=== PATIENT | female | born 1940 | race Caucasian/White ===

== ENCOUNTER 2020-12-31 08:47 | Inpatient (IN) | payer MEDICARE, SELFPAY ==
[2020-12-31] VITALS (32 sets, daily range): BP systolic 81–132; BP diastolic 51–97; PULSE 35–84; RESP 13–27; TEMP 36.1–37.1; O2SAT 87–99; BMI 41.2; BMI 41.0
--- NOTE | ~2020-12-31 | US_ITS ---
US renal BI DATE: 01/01/2021 10:25 INDICATION: Acute renal insufficiency TECHNIQUE: Real-time imaging of the kidneys and urinary bladder COMPARISON: May 03, 2006 complete abdominal ultrasound April 29, 2006 CT abdomen FINDINGS: Right kidney measures 9.6 cm length, left kidney 9.3 cm. There are multiple left renal cysts, measuring up to 2.2 cm. No evidence of hydronephrosis of either kidney. Urinary bladder is evacuated and not evaluated. IMPRESSION: No evidence of hydronephrosis of either kidney Left renal cysts Reviewed, dictated and finalized at [facility]. Reviewed, dictated and finalized at [facility].
--- NOTE | ~2020-12-31 | XR_ITS ---
EXAMINATION: XR chest 1V portable INDICATION: Shortness of breath TECHNIQUE: Portable AP chest at 0905 hours COMPARISON: 08/24/2011 FINDINGS: There are airspace opacities of the lung bases and right midlung zone. No pleural effusion or pneumothorax is identified. The cardiomediastinal silhouette is upper limits of normal for techniq ue. IMPRESSION: 1. Airspace opacities of the lung bases and right midlung zone, consistent with atelectasis versus pn eumonia. Reviewed, dictated and finalized at [facility]. IMPRESSION: 1. Airspace opacities of the lung bases and right midlung zone, consistent with atelectasis versus pneumonia.
--- NOTE | ~2020-12-31 | CT_ITS ---
EXAMINATION: CT brain wo con DATE: 12/31/2020 18:16 INDICATION: Fall out of bed. TECHNIQUE: Computed tomography (CT) of the head was performed without intravenous contrast. The mA wa s adjusted according to patient size. Iterative reconstruction technique was employed. Exam dose: 60 5.33 mGy-cm total exam DLP. COMPARISON: None FINDINGS: Bilateral carotid siphon internal carotid artery prominent calcifications. There is nonspecific diminished attenuation of the cerebral white matter, likely due to chronic small vessel ischemic changes. There is cerebral volume loss predominating in the frontal lobes. No intracranial mass lesion or hemorrhage or cerebrovascular accident is detected. No midline shift o r mass effect effect. No subdural or epidural hematoma. The mastoid air cells and included paranasal sinuses are normally developed and aerated. No fracture or bone destruction of the cranial vault. IMPRESSION: Cerebral atherosclerosis and chronic small vessel ischemic changes. No acute intracranial abnormality or skull fracture Reviewed, dictated and finalized at [facility]. Reviewed, dictated and finalized at location [facility]. IMPRESSION: Cerebral atherosclerosis and chronic small vessel ischemic changes . No acute intracranial abnormality or skull fracture
--- NOTE | 2020-12-31 08:54 | ECG_ITS ---
Measurements Intervals [place] Rate: 43 P: [place]: 0 QRS: 122 QRSD: 118 T: 120 QT: 454 QTc: 386 Interpretive Statements SINUS BRADYCARDIA WITH FIRST DEGREE AV BLOCK CHANGES TO SLOW JUNCTIONAL RHYTHM LIMB LEAD REVERSAL ATRIAL PREMATURE COMPLEX BORDERLINE T WAVE ABNORMALITY- ANTEROLATERAL LEADS BASELINE ARTIFACT- I, V1 ABNORMAL ECG Electronically Signed On 12-31-2020 10:56:06 CDT by Darrin Valadez D.O.
--- NOTE | 2020-12-31 09:03 | ED.ARRPALP ---
HPI - Arrhythmia/Palpitations General Chief Complaint: Arrhythmia/Palpitations Stated Complaint: nausea, pale, low hr Time Seen by Provider: 12/31/20 08:52 Source: patient, EMS and RN notes reviewed Mode of arrival: EMS Limitations: no limitations History of Present Illness HPI narrative: This is an 80 year old female with history of atrial fibrillation on coumadin who presents for evaluation of palpitations with dizziness, nausea and vomiting. She states last night she developed feeling heart racing so she assumed her atrial fibrillation was acting up . She had difficulty sleeping last night. She continued to have these episodes. She later developed vertigo with nausea, vomiting and shortness of breath when she would try to get up . EMS found patient with HR in 30-40s with first degree AV block. Patient was started on IV fluids in ambulance. Patient denies any symptoms at rest currently. She last took her medications this morning but she thinks she may have thrown them back up. Denies leg swelling, fever, chills, cough. Related Data Home Medications Medication Instructions Recorded Confirmed omeprazole magnesium 20 mg 20 mg PO DAILY 12/15/19 12/31/20 tablet,delayed release flecainide 100 mg PO DAILY 12/31/20 12/31/20 metoprolol succinate 100 mg PO Q12H 12/31/20 12/31/20 warfarin 4 mg PO DAILY 12/31/20 12/31/20 Allergies Allergy/AdvReac Type Severity Reaction Status Date / Time No Known Allergies Allergy Unknown Verified 12/31/20 09:26 Review of Systems Review of Systems: All systems reviewed & are unremarkable except as noted in HPI and below PMFSH Past Medical History Medical History (Updated 12/31/20 @ 18:41 by Alondra Hopkins MD) Atrial fibrillation and flutter Paroxysmal atrial fibrillation Primary hypertension Psoriasis Surgical History Surgical History H/O colonoscopy History of knee surgery [place] teeth removed Family History Family History Father Family history of cardiovascular disease Mother Family history of malignant neoplasm of breast in first degree relative Other Family history of coronary artery disease Social History Social History Social History: The patient lives home alone. She is . She has 2 children who are the power sports attorney for healthcare. The patient used to smoke many years ago. 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 Code status full code Smoking packs per day: 0.5 Smoking cigarettes per day: 10.0 Years smoked: 30 Smoking pack-years: 15.00 Smoking status: Former smoker Tobacco type: cigarettes Second hand tobacco smoke exposure: No Smoking end date: 03/11/99 Alcohol intake: never Alcohol use details: Social Substance use: never Substance use type: does not use Gender identity (if verbalized by the patient): Female Sexual Orientation (if Verbalized by the Patient): Straight or Heterosexual Spiritual care concerns: No Agree to blood products: Yes Exam Const: General: no acute distress and alert Orientation/consciousness: patient oriented x3 HENMT: Ears: external ears normal and TM's normal bilaterally Eyes: Pupils: Equal, round and reactive pupils present EOM: EOMs intact bilaterally Neck: Neck: normal visual inspection Chest: Chest palpation & inspection: normal inspection of the chest Resp: Effort & Inspection: normal respiratory effort and no retractions Auscultation: clear to auscultation bilaterally Cardio: Rate: bradycardic Rhythm: abnormal rhythm Heart sounds: no murmurs GI: GI Palp: Yes Soft to palpation, No Tenderness to palpation present (GI) and No Guarding due to palpation present (GI) Auscultation: normal bowel sounds Back/Spine/Pelvis: Back: no CVA tendern
[2020-12-31] MEDS: GLUCAGON FOR INJ 1 MG VIAL 5 MG IV PUSH (09:43)
[2020-12-31] MEDS: SODIUM CHLORIDE 0.9% IV 1,000 ML 999 ML IV CONT (09:43)
[2020-12-31] MEDS: ONDANSETRON INJ 4 MG/2 ML VIAL IV PUSH (09:51)
[2020-12-31 10:08] LABS: Basophils Percent Auto 0.2 % (0.2-1.2); Eosinophils Percent Auto 0.5 % (0-4.4); Hematocrit 39.6 % (37.0-47.0); Hemoglobin 12.7 g/dL (12.0-15.0); INR 3.9; Immature Granulocyte Absolute 0.03 K/mm3 (0.00-0.031); Immature Granulocyte Percent A 0.4 % (0-0.5); Lymphocytes Absolute Auto 1.08 K/mm3 (0.9-3.2); Lymphocytes Percent Auto 13.4 % (18.3-44.2); Mean Corpuscular HGB Conc 32.1 g/dl (32-36); Mean Corpuscular Hemoglobin 30.2 pg (26-34); Mean Corpuscular Volume 94.3 fl (80-100); Mean Platelet Volume 10.2 fl (7.4-10.4); Monocytes Absolute Auto 0.7 K/mm3 (0.1-0.6); Monocytes Percent Auto 8.5 % (2.6-8.5); Neutrophils Absolute Auto 6.2 K/mm3 (1.3-6.7); Platelet Count Result 267 k/mm3 (150-375); Prothrombin Time 36.9 Seconds (11.1-14.7); Red Cell Distribution Width 13.7 % (11.5-14.5); White Blood Count 8.1 K/mm3 (4.5-10.0)
[2020-12-31 10:09] LABS: Partial Thromboplastin Time 41.6 SECONDS (22.3-36.8)
[2020-12-31 10:25] LABS: Anion Gap 8 mmol/L (8-16); Blood Urea Nitrogen 38 mg/dL (7-17); Calcium 9.1 mg/dL (8.4-10.2); Carbon Dioxide 30 mmol/L (22-30); Chloride 101 mmol/L (98-107); Estimated CRCL calculation 25 ml/min; Estimated Glomerular Filt Rate 27; Glucose 121 mg/dL (65-110); Magnesium 1.7 mg/dL (1.6-2.3); Potassium 4.1 mmol/L (3.4-5.0); Sodium 139 mmol/L (137-145)
[2020-12-31 10:34] LABS: NT Pro B Type Natriuretic Pept 2690 pg/mL (5-100)
[2020-12-31 10:37] LABS: Troponin I < 0.012 ng/mL (0.000-0.034)
[2020-12-31] MEDS: ATROPINE SULFATE 1 MG/10 ML SYRINGE IV PUSH ×2 (10:48→16:25)
--- NOTE | 2020-12-31 13:31 | PM.IMHP ---
H&P: HPI History of Present Illness Date/Time: 12/31/20 13:31 this is a 80-year-old female patient who lives home by herself. The patient has a history of atrial fibrillation and atrial flutter. This is paroxysmal. The patient stated she can typically tell when she goes into a atrial fibrillation because she feels dizzy and has palpitations. The patient came to the emergency room today because she felt her heart racing last night and just assumed that she was in atrial fibrillation. The patient stated that she had not taken her Coumadin yesterday or today. The patient vomited today and stated that she had only taken 1 of her medications and was her anti rhythmic medication and she cannot recall the name of it. 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 Patient sees the [facility] at [facility]. I asked the patient how her heart rate felt this morning she said she was having difficulty finding her pulse. The patient had severe vertigo this morning. The patient was found to have a heart rate in the 30s when EMS picked her up from her home. She had oxygen applied at 2 L per nasal cannula and she had IV fluids in the ambulance. The patient was also given glucagon, aspirin, Zofran, atropine, and IV fluids were started in the emergency room. When I assessed the patient the nasal cannula was on but her oxygen flow meter was turned off. The patient was talking in full sentences and had no further symptoms. Cardiology has been consulted. The patient heart rate is 50-60 now. Patient is being admitted to observation status on the date of service of 01/01/2020 Chief Complaint: Palpitations with nausea vomiting and dizziness Review of Systems Review of Systems: All systems reviewed & are unremarkable except as noted in HPI and below Constitutional: Constitutional: Reports as per HPI and Reports no additional constitutional complaints Eyes: Eyes: Reports as per HPI and Reports no additional eye complaints ENT: Reports system reviewed and no additional complaints, except as documented and Reports Normal hearing present Cardiovascular: Cardiovascular: Reports no additional cardiovascular complaints Respiratory: Respiratory: Reports no additional respiratory complaints and Reports no additional respiratory complaints Gastrointestinal: Gastrointestinal: Reports as per HPI and Reports no additional gastrointestinal complaints Musculoskeletal: Musculoskeletal: Reports no additional musculoskeletal complaints Integumentary/Breasts: Skin/Breast: Reports system reviewed and no additional complaints, except as docu and Reports as per HPI Neurologic: Reports system reviewed and no additional complaints, except as documented, Reports as per HPI and Reports Normal hearing present Psychiatric: Psychiatric: Reports no additional psychiatric complaints and Reports as per HPI Endocrine: Endocrine: Reports no additional endocrine complaints Hematologic/Lymphatic: Hematologic/Lymphatic: Reports no additional hematologic/lymphatic complaints Allergic/Immunologic: Allergic/Immunologic: Reports no additional allergic/immunologic complaints [facility] Past Medical History Medical History (Updated 12/31/20 @ 13:47 by Viki Man NP) Atrial fibrillation and flutter Primary hypertension Psoriasis Surgical History Surgical History (Updated 12/31/20 @ 13:39 by Viki Man NP) H/O colonoscopy History of knee surgery [place] teeth removed Family History Family History Father Family history of cardiovascular disease Mother Family history of malignant neoplasm of breast in first degree relative Other Family history of coronary artery disease Social History Social History (Updated 12/31/20 @ 13:43 by Viki Man NP) Social History: The patient lives home alone. She is . She has 2 children who are the power auditor/quality for he
--- NOTE | 2020-12-31 14:11 | ADMGEN ---
This patient, Iqra Jade, was admitted to IMU Room 211-01. Patient/family oriented to hospital policies and general routines including ID bracelet, bed and alarms, visiting hours, pain management, procedures, bathroom and other care routines, personal items, smoking policy, room service/diet, and visiting hours. Information on how to activate the Rapid Response Team has been discussed. Patient/Family are encouraged to report perceived risks to care and to ask questions if they do not understand what they are told or what they should do.
[2020-12-31 15:33] LABS: Troponin I < 0.012 ng/mL (0.000-0.034)
--- NOTE | 2020-12-31 15:57 | PM.CNCAR ---
Assessment and Plan Assessment and plan (1) Dizziness: Code(s): R42 - Dizziness and giddiness Status: Acute Assessment and Plan: Presumably the primary issue is marked bradycardia. She does have some vomiting episodes with this also and she also describes her dizziness as vertigo but regardless, she is having bradycardia and intermittent junctional rhythm while on a combination of flecainide and metoprolol. Will start her on some low-dose dopamine 2.5 micrograms/kilogram per minute IV overnight. Pacer pads on. Will check EKG in the morning. 2D echocardiogram Doppler also be ordered (2) Bradycardia: Code(s): R00.1 - Bradycardia, unspecified Status: Acute Assessment and Plan: Bradycardia with intermittent junctional rhythm. Improving. Obviously will stop flecainide and metoprolol. (3) Paroxysmal atrial fibrillation: Code(s): I48.0 - Paroxysmal atrial fibrillation Status: Acute Assessment and Plan: Generally in sinus rhythm but already having bursts of atrial fibrillation. 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 Will hold warfarin today. Daily INRs History of Present Illness History of Present Illness Consult date/time: 12/31/20 15:57 Requesting physician: Alondra Hopkins MD Consult reason: Other (Bradycardia) Reason For Visit: bradycardia/dizziness Narrative: Reason for admission: Bradycardia and dizziness Requesting provider: Dr. Hopkins Date of service 12/31/2020 History: Patient is an 80-year-old female who has a history of atrial fibrillation. She follows with Dr. Parker as an outpatient. She was formally on sotalol and warfarin for anticoagulation. Recently due to worsening atrial fibrillation, she was switched from sotalol to a combination of flecainide and metoprolol. She came to the hospital today because of some severe dizziness and feeling like she was going to pass out. She also describes the episode as vertigo. She had another episode about a week or so ago in which she felt like severe dizziness followed by vomiting. Episode lasted about 30 minutes. Last night she felt nauseated. She did not sleep well and states that she had very little sleep. She woke up and she started to have another episode of severe dizziness as if she and the room were both spending as well as feeling like she was going to pass out. She shortly thereafter started to throw up. Because of the symptoms she decided to call 911. Her pulse was distant she thought. She did have a brief episode of some palpitations earlier today which felt like her atrial fibrillation. Whenever she came to the emergency department she has been having intermittent episodes of sinus bradycardia with intermittent junctional rhythm. She did have another episode of severe nausea and vomiting after receiving glucagon. At this point she is actually feeling better and denies any chest pain, shortness of breath, syncope, presyncope, paroxysmal nocturnal dyspnea, orthopnea, edema or palpitations. Review of Systems Review of Systems: All systems reviewed & are unremarkable except as noted in HPI and below Constitutional: Constitutional: Reports weakness Eyes: Eyes: Denies blurry vision ENT: Reports Normal hearing present Cardiovascular: Cardiovascular: Denies chest pain and Reports lightheadedness Respiratory: Respiratory: Reports dyspnea Gastrointestinal: Gastrointestinal: Denies abdominal pain Genitourinary: Genitourinary: Denies flank pain Musculoskeletal:
[2020-12-31] MEDS: DOPamine 400 MG/D5W 250 ML 400 MG/250 ML BAG 9.53 MG IV CONT (16:25)
--- NOTE | 2020-12-31 16:33 | ECG_ITS ---
Measurements Intervals [place] Rate: 74 P: [place]: 0 QRS: 120 QRSD: 129 T: 269 QT: 254 QTc: 282 Interpretive Statements ATRIAL FIBRILLATION WITH INTERMITTENT ECTOPIC ATRIAL COMPLEXES INTRAVENTRICULAR CONDUCTION DELAY BORDERLINE T WAVE ABNORMALITY- DIFFUSE LEADS ABNORMAL ECG Electronically Signed On 01-01-2021 9:50:53 CDT by Darrin Valadez D.O.
[2020-12-31 17:40] LABS: Troponin I < 0.012 ng/mL (0.000-0.034)
[2020-12-31] MEDS: SODIUM CHLORIDE 0.9% IV 1,000 ML 125 ML IV CONT (19:05)
[2021-01-01] VITALS (18 sets, daily range): BP systolic 106–144; BP diastolic 51–89; PULSE 45–110; RESP 15–24; TEMP 36.4–37.1; O2SAT 88–96
[2021-01-01] MEDS: SODIUM CHLORIDE 0.9% IV 1,000 ML 125 ML IV CONT (03:25)
[2021-01-01] MEDS: ONDANSETRON INJ 4 MG/2 ML VIAL IV PUSH (03:26)
[2021-01-01 04:47] LABS: Basophils Percent Auto 0.2 % (0.2-1.2); Eosinophils Percent Auto 0.1 % (0-4.4); Hematocrit 37.7 % (37.0-47.0); Hemoglobin 12.1 g/dL (12.0-15.0); Immature Granulocyte Absolute 0.02 K/mm3 (0.00-0.031); Immature Granulocyte Percent A 0.2 % (0-0.5); Lymphocytes Absolute Auto 0.92 K/mm3 (0.9-3.2); Lymphocytes Percent Auto 9.7 % (18.3-44.2); Mean Corpuscular HGB Conc 32.1 g/dl (32-36); Mean Corpuscular Hemoglobin 30.5 pg (26-34); Mean Platelet Volume 10.2 fl (7.4-10.4); Monocytes Absolute Auto 0.7 K/mm3 (0.1-0.6); Monocytes Percent Auto 7.6 % (2.6-8.5); Neutrophils Absolute Auto 7.8 K/mm3 (1.3-6.7); Neutrophils Percent Auto 82.2 % (45.5-73.1); Platelet Count Result 217 k/mm3 (150-375); Red Blood Count 3.97 M/mm3 (4.2-5.4); Red Cell Distribution Width 13.6 % (11.5-14.5); White Blood Count 9.5 K/mm3 (4.5-10.0)
[2021-01-01 04:59] LABS: Alanine Aminotransferase 28 U/L (4-35); Albumin Level 3.9 g/dL (3.5-5.1); Alkaline Phosphatase 98 U/L (38-126); Anion Gap 11 mmol/L (8-16); Aspartate Amino Transferase 41 U/L (14-36); Bilirubin,Total 0.9 mg/dL (0.2-1.3); Blood Urea Nitrogen 39 mg/dL (7-17); Calcium 9.1 mg/dL (8.4-10.2); Carbon Dioxide 27 mmol/L (22-30); Chloride 102 mmol/L (98-107); Estimated CRCL calculation 32 ml/min; Estimated Glomerular Filt Rate 36; Glucose 112 mg/dL (65-110); Magnesium 1.4 mg/dL (1.6-2.3); Potassium 3.4 mmol/L (3.4-5.0); Sodium 140 mmol/L (137-145)
[2021-01-01 05:03] LABS: INR 2.9; Prothrombin Time 29.3 Seconds (11.1-14.7)
[2021-01-01 06:50] LABS: Thyroid Stimulating Hormone Reflex 0.309 uIU/mL (0.465-4.68)
--- NOTE | 2021-01-01 08:11 | ECG_ITS ---
Measurements Intervals [place] Rate: 47 P: 103 [place]: 240 QRS: 146 QRSD: 117 T: 141 QT: 483 QTc: 429 Interpretive Statements SINUS BRADYCARDIA WITH FIRST DEGREE AV BLOCK INTRAVENTRICULAR CONDUCTION DELAY DELAYED PRECORDIAL R/S TRANSITION T WAVE ABNORMALITY IN HIGH LATERAL LEADS- CONSIDER ISCHEMIA ABNORMAL ECG Electronically Signed On 01-01-2021 9:51:41 CDT by Darrin Valadez D.O.
[2021-01-01] MEDS: POTASSIUM CHLORIDE 20 MEQ TABLET 40 MEQ PO (08:47)
[2021-01-01] MEDS: PANTOPRAZOLE 40 MG TABLET PO (08:48)
[2021-01-01] MEDS: MAGNESIUM SULF 2 GM/WATER 50ML 2 GM/50 ML BAG IVPB (08:48)
--- NOTE | 2021-01-01 08:48 | WPDCNINT ---
Assessment and Plan Assessment and plan (1) Bradycardia: Code(s): R00.1 - Bradycardia, unspecified Status: Acute Assessment and Plan: patient presented with sinus bradycardia with intermittent junctional rhythm and is on low-dose dopamine at this time she is asymptomatic this could be secondary to beta-luther overdose or inherent cardiac will continue to monitor and wean off dopamine today continue to hold beta-luther blood pressure is adequate at this time ECHO is ordered and pending (2) Supratherapeutic INR: Code(s): R79.1 - Abnormal coagulation profile Status: Acute Assessment and Plan: patient is on Coumadin which was helpful on admission. INR is 2.9 today I will resume Coumadin dose of 4 mg daily and daily INR monitoring (3) Paroxysmal atrial fibrillation: Code(s): I48.0 - Paroxysmal atrial fibrillation Status: Acute Assessment and Plan: currently in sinus Raúl (4) Primary hypertension: Code(s): I10 - Essential (primary) hypertension Status: Acute Assessment and Plan: p.r.n. hydralazine (5) GERD (gastroesophageal reflux disease): Qualifiers: Esophagitis presence: esophagitis presence not specified Qualified Code(s): K21.9 - Gastro-esophageal reflux disease without esophagitis Code(s): K21.9 - Gastro-esophageal reflux disease without esophagitis Status: Acute Assessment and Plan: Continue PPI (6) ASHA (acute kidney injury): Code(s): N17.9 - Acute kidney failure, unspecified Status: Acute Assessment and Plan: patient presented with creatinine 1.8 baseline creatinine is unknown. Patient was started on IV fluids and creatinine has improved 1.4 today continue IV fluids for another 24 hours check CK and renal ultrasound this could be secondary to hypo perfusion from bradycardia and patient was also on diuretics which is on hold at this time (7) Abnormal chest xray: Code(s): R93.89 - Abnormal findings on diagnostic imaging of other specified body structures Status: Acute Assessment and Plan: her chest x-ray shows opacities on right lung base and patient does have few crackles on exam but otherwise she is asymptomatic she denies any cough fever and has a normal WBC incentive spirometry monitor Additional Plan DVT prophylaxis - on warfarin Stress ulcer prophylaxis - on PPI Nutrition - diet Code Status - Full Code Total CC time 30 minutes 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 presented yesterday with chief complaint of dizziness and lightheadedness. Symptoms started the day prior in the evening. She also felt that she was going to pass out but never actually did. The dizziness and lightheadedness was mostly associated with exertion. Prior to that patient denies any fever chest pain shortness of breath cough dysuria hematuria. She states that she was feeling fine until the evening. Later she started having some nausea and had few episodes of vomiting but no blood associated with it. during the history ED at was suspected the patient was taking her Toprol-XL twice a day. EMS was found to be bradycardic with heart rate in 30s and patient was also given glucagon, aspirin, Zofran, atropine, and IV fluids on arrival to the emergency room. patient was evaluated by Cardiology and patient was in sinus bradycardia with intermittent junctional rhythm. Patient was later started on dopamine infusion and admitted to ICU for further evaluation management. This morning patient states she is feeling better and denies any complaints at this time. She states her dizziness and lightheadedness has resolved and she has not had any vomiting overnight. She is in sinus bradycardia with heart rate in 50s but adequate
--- NOTE | 2021-01-01 09:07 | PM.PNCARD ---
Progress Note: A&P Assessment and Plan (1) Dizziness: Code(s): R42 - Dizziness and giddiness Status: Acute Assessment and Plan: Presumably the primary issue is marked bradycardia. She does have some vomiting episodes with this also and she also describes her dizziness as vertigo but regardless, she is having bradycardia and intermittent junctional rhythm while on a combination of flecainide and metoprolol. Dopamine on hold. Continue to monitor rate/rhythm. No need for temporary pacemaker at this point. (2) Bradycardia: Code(s): R00.1 - Bradycardia, unspecified Status: Acute Assessment and Plan: Sinus bradycardia. Improving. Obviously will stop flecainide and metoprolol. (3) Paroxysmal atrial fibrillation: Code(s): I48.0 - Paroxysmal atrial fibrillation Status: Acute Assessment and Plan: Generally in sinus rhythm but already having bursts of atrial fibrillation. 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 Resume warfarin Renal function is better. But will reduce IV fluids down to 75 mL per hour as she is eating and drinking also renal function is improving. Electrolyte imbalance Jaciel was changes is also noted. She is will be transfused receiving magnesium and potassium Subjective Date/time seen: 01/01/21 09:07 Interval history: 80-year-old with presyncope and bradycardia. Hold Lasix Date of service 01/01/2021 she is doing okay. She is without complaint no chest pain dizziness or shortness of breath. Her rhythm is generally now sinus bradycardia. No significant junctional rhythm is seen Review of Systems Review of Systems: All systems reviewed & are unremarkable except as noted in HPI and below Constitutional: Constitutional: Denies excessive sweating, Denies headache(s) and Reports weakness Eyes: Eyes: Denies blurry vision ENT: Reports Normal hearing present, Denies headache(s) and Denies neck pain Cardiovascular: Cardiovascular: Denies chest pain, Reports lightheadedness and Reports dyspnea Respiratory: Respiratory: Reports dyspnea Gastrointestinal: Gastrointestinal: Denies abdominal pain Genitourinary: Genitourinary: Denies flank pain Musculoskeletal: Musculoskeletal: Denies back pain and Denies neck pain Integumentary/Breasts: Skin/Breast: Denies dry skin Neurologic: Reports Normal hearing present, Denies headache(s) and Reports weakness Psychiatric: Psychiatric: Denies anxiety Endocrine: Endocrine: Denies excessive sweating Hematologic/Lymphatic: Hematologic/Lymphatic: Denies easy bleeding Allergic/Immunologic: Allergic/Immunologic: Denies GI upset with certain foods Exam Narrative: Alert oriented. Appears to be in no acute distress. Appears stated age Const: General: comfortable and no acute distress HENMT: General nose exam: Normal nares present Eyes: Sclera: sclerae normal Neck: Neck: supple and no JVD Chest: Other: No reproducible chest wall pain to palpation Resp: Auscultation: clear to auscultation bilaterally Cardio: Rate: bradycardic Rhythm: regular rhythm GI: Inspection: normal to inspection Skin: General skin exam: normal color Neuro: Cranial nerves: Yes Normal hearing present Cognition (Neuro): normal cognition Speech: normal speech Extrem: General: normal to inspection and no edema Psych: Mental Status: mental status grossly normal Objective Data Vital Signs Vital Signs: Vital Signs - 24 hr 12/31/20 10:03 12/31/20 10:15 12/31/20 10:20 Temperature Pulse
[2021-01-01 09:58] LABS: Creatine Kinase 182 U/L (30-135)
[2021-01-01 10:31] LABS: Free T4 Free Thyroxine Reflex 2.03 ng/dL (0.78-2.19)
[2021-01-01] MEDS: SODIUM CHLORIDE 0.9% IV 1,000 ML 75 ML IV CONT (12:29)
[2021-01-01] MEDS: ACETAMINOPHEN 500 MG TABLET 1000 MG PO (16:10)
[2021-01-01] MEDS: WARFARIN (*PBKC) 4 MG TABLET PO (16:14)
--- NOTE | 2021-01-01 17:30 | PC.NURSE ---
patient went into Afib with heart rate in low 100s/1teens. Dr. Gr notified. Verbal order received to monitor patient heart rate and if sustained heart rate in 130s, give cardiology a call. Will continue to monitor patient according to ICU protocol.
[2021-01-02] VITALS (20 sets, daily range): BP systolic 94–142; BP diastolic 58–98; PULSE 83–120; RESP 16–21; TEMP 35.9–36.9; O2SAT 91–100
--- NOTE | 2021-01-02 | ECHO_ITS ---
Patient Info Name: Iqra Jade Age: 80 years : 1940 Gender: Female Ht: 62 in Wt: 224 lbs BSA: 2.16 m2 HR: 103 bpm BP: 116 / 74 mmHg Heart Rhythm: Atrial Fibrillation Exam Date: 01/02/2021 8:11 AM Exam Location: [facility] Patient Status: Inpatient Admit Date: 01/01/2021 Staff Ordering Physician: Guero Gr MD Java Enterprise Architect: Dalton Macario, PREETCS, RT Attending Provider: Kris Harvey MD Referring Physician: Maile BRYANT; Exam Type: CA echo doppler color flow Study Info Indications R00.1 - Bradycardia, unspecified Complete two-dimensional, color flow and Doppler transthoracic echocardiogram is performed. Strain analysis performed. Summary 1. Complete two-dimensional, color flow and Doppler transthoracic echocardiogram is performed. 2. Normal left ventricular size and systolic function. 3. Moderate left atrial enlargement. 4. Small amount of mitral regurgitation. 5. Sclerotic aortic valve which is not stenotic. 6. Atrial fibrillation. Left Ventricle Left ventricular chamber dimension is normal. Left ventricular systolic function is normal, estimated at 60-65%. The left ventricular diastolic function is normal. Right Ventricle Right ventricular chamber dimension is normal. Left Atria Left atrial chamber dimension is moderately enlarged. Right Atria Right atrial chamber dimension is normal. Aortic Valve The aortic valve is trileaflet. There is mild aortic valve sclerosis. Pulmonic Valve The pulmonic valve is not well visualized. There is mild pulmonic regurgitation. Mitral Valve The mitral valve has normal leaflets. There is mild mitral valve regurgitation. Tricuspid Valve The tricuspid valve leaflets are normal. There is mild tricuspid valve regurgitation. Pericardium/Pleural The pericardium appears normal. Aorta The aortic root size at the sinus of Valsalva is normal. Left Ventricular Outflow Tract Name Value Normal LVOT 2D LVOT Diameter 2.0 cm LVOT Doppler LVOT Peak Gradient 2 mmHg LVOT Mean Gradient 1 mmHg LVOT VTI 14 cm LVOT VTI/AV VTI Ratio 0.5 LVOT Stroke Volume 42 ml LVOT CO 4.1 l/min LVOT CI 1.9 l/min/m2 Mitral Valve Name Value Normal MV Doppler MV Decel [place] 508 cm/s2 MV PHT 53 ms MV Area (PHT) 4.2 cm2 4.0-5.0 MV Regurgitation Doppler MR Peak Gradient 91 mmHg MV Diastolic Function
[2021-01-02] MEDS: SODIUM CHLORIDE 0.9% IV 1,000 ML 75 ML IV CONT (01:54)
[2021-01-02 04:41] LABS: Hematocrit 34.3 % (37.0-47.0); Hemoglobin 11.2 g/dL (12.0-15.0); Mean Corpuscular HGB Conc 32.7 g/dl (32-36); Mean Corpuscular Hemoglobin 30.7 pg (26-34); Mean Platelet Volume 10.2 fl (7.4-10.4); Platelet Count Result 177 k/mm3 (150-375); Red Blood Count 3.65 M/mm3 (4.2-5.4); Red Cell Distribution Width 13.5 % (11.5-14.5); White Blood Count 6.5 K/mm3 (4.5-10.0)
[2021-01-02 04:54] LABS: INR 3.2; Prothrombin Time 31.5 Seconds (11.1-14.7)
[2021-01-02 05:14] LABS: Alanine Aminotransferase 24 U/L (4-35); Albumin Level 3.3 g/dL (3.5-5.1); Alkaline Phosphatase 86 U/L (38-126); Anion Gap 6 mmol/L (8-16); Aspartate Amino Transferase 38 U/L (14-36); Bilirubin,Total 0.9 mg/dL (0.2-1.3); Blood Urea Nitrogen 32 mg/dL (7-17); Calcium 8.8 mg/dL (8.4-10.2); Carbon Dioxide 28 mmol/L (22-30); Chloride 104 mmol/L (98-107); Estimated CRCL calculation 40 ml/min; Estimated Glomerular Filt Rate 48; Glucose 84 mg/dL (65-110); Magnesium 1.8 mg/dL (1.6-2.3); Potassium 3.6 mmol/L (3.4-5.0); Sodium 138 mmol/L (137-145)
[2021-01-02] MEDS: MAGNESIUM SULF 1 GM/D5W 100 ML 1 GM/100 ML BAG IVPB (08:28)
[2021-01-02] MEDS: PANTOPRAZOLE 40 MG TABLET PO (08:41)
[2021-01-02] MEDS: POTASSIUM CHLORIDE 20 MEQ TABLET 40 MEQ PO (08:41)
--- NOTE | 2021-01-02 08:50 | WPDINTPN ---
Progress Note: A&P Assessment and Plan (1) Bradycardia: Code(s): R00.1 - Bradycardia, unspecified Status: Acute Assessment and Plan: patient presented with sinus bradycardia with intermittent junctional rhythm and is on low-dose dopamine dopamine was discontinued yesterday and patient was monitored in the ICU. This morning heart rate is improved and is now tachycardic with rate in 100 this could be secondary to beta-luther overdose or inherent cardiac will start p.r.n. IV Lopressor continue to hold beta-luther until patient seen by Cardiology blood pressure is adequate at this time ECHO has been done and report is pending (2) Supratherapeutic INR: Code(s): R79.1 - Abnormal coagulation profile Status: Acute Assessment and Plan: resolved in therapeutic range continue Coumadin dose of 4 mg daily and daily INR monitoring (3) Paroxysmal atrial fibrillation: Code(s): I48.0 - Paroxysmal atrial fibrillation Status: Acute Assessment and Plan: see above (4) Primary hypertension: Code(s): I10 - Essential (primary) hypertension Status: Acute Assessment and Plan: p.r.n. hydralazine (5) GERD (gastroesophageal reflux disease): Qualifiers: Esophagitis presence: esophagitis presence not specified Qualified Code(s): K21.9 - Gastro-esophageal reflux disease without esophagitis Code(s): K21.9 - Gastro-esophageal reflux disease without esophagitis Status: Acute Assessment and Plan: Continue PPI (6) ASHA (acute kidney injury): Code(s): N17.9 - Acute kidney failure, unspecified Status: Acute Assessment and Plan: patient presented with creatinine 1.8 baseline creatinine is unknown. Patient was started on IV fluids and creatinine has improved 1.1 today normal CK and renal ultrasound does not show any hydronephrosis this could be secondary to hypo perfusion from bradycardia and patient was also on diuretics which is on hold at this time (7) Abnormal chest xray: Code(s): R93.89 - Abnormal findings on diagnostic imaging of other specified body structures Status: Acute Assessment and Plan: her chest x-ray shows opacities on right lung base and patient does have few crackles on exam but otherwise she is asymptomatic she denies any cough fever and has a normal WBC incentive spirometry monitor Additional Plan DVT prophylaxis - on warfarin Stress ulcer prophylaxis - on PPI Nutrition - diet Code Status - Full Code PT OT, up in chair, incentive spirometry transfer out of ICU today Subjective Date/time seen: 01/02/21 Patient denies any complaints this morning as states she feels better. Patient denies any chest pain shortness breath cough palpitations fever headache nausea vomiting diarrhea. Review of system was negative all systems. Her heart rate has improved it is in 100s in atrial fibrillation Review of Systems Review of Systems: All systems reviewed & are unremarkable except as noted in HPI and below ( HPI) Exam Narrative: General: Pt is alert awake and in NAD Lungs/Chest: Trachea central Clear BS B/L, few crackles on right base Cardiac: Irregular . Normal S1 S2. No murmurs Circulation: Pedal pulses are intact and symmetrical. Abdomen: Normal bowel sounds.. obese Soft. NT. ND. Extremities: No clubbing, cyanosis or edema. Warm : Cow[place] in place Neurologic: Follows commands. Moves all 4 extremities PERRL alert oriented x3 Skin: No Rash Objective Data Vital Signs Vital Signs: Vital Signs - 24 hr 01/01/21 10:00 01/01/21 10:32 01/01/21 12:00 Temperature 37.1 C Pulse Rate 48 L 50 L Respiratory Rate 23 H 20 Blood Pressure 106/58 L 109/51 L Pulse Oximetry 91 91 92 01/01/21 14:00 01/01/21 14:31 01/01/21 15:56 Temperature 36.7 C Pulse Rate 45 L Respiratory Rate 18 Blood Pressure 115/60 Pulse Oximetry 90 92 01/01/21 16:0
--- NOTE | 2021-01-02 09:35 | PM.PNCARD ---
Progress Note: A&P Additional Plan 80-year-old lady with: Long history of paroxysmal atrial fibrillation was failed with therapy with sotalol which previously had been effective for a number of years now has failed flecainide and metoprolol. Discussion of this morning of course centered around excepting chronic atrial fibrillation verses attempting to restore sinus rhythm with amiodarone. My recommendation and she is agreeable to initiate amiodarone treatment and assess her response to this now that the other agents have washed out for couple of days. For now we will keep her on warfarin although I did caution her about the interaction between amiodarone and warfarin as well. Len Parker MD [facility] Subjective Date/time seen: Date of service: 01/02/21 09:35 Interval history: Follow-up visit in this 80-year-old lady with: Symptomatic recurrent atrial fibrillation. She had been treated with sotalol in the past with good success but then became resistant to this with significant AF burden. Recently she was transitioned to the combination of flecainide and metoprolol. She entered the hospital with symptomatic bradycardia and was in sinus rhythm alternating with junctional rhythm. These medications were stopped and as expected she is now back in atrial fibrillation heart rate is ranging between 90 and 110. While at bed rest she is essentially asymptomatic. Discussed options with patient in detail in terms of excepting chronic atrial fibrillation or starting amiodarone at this time. Exam Const: General: comfortable and no acute distress Other: Over obese elderly lady pleasant comfortable cooperative no distress HENMT: Mouth: Yes moist mucous membranes Eyes: Sclera: sclerae normal Pupils: Equal, round and reactive pupils present Neck: Neck: supple and no JVD Resp: Effort & Inspection: normal respiratory effort Auscultation: clear to auscultation bilaterally Cardio: Rhythm: abnormal rhythm irregularly irregular GI: GI Palp: Yes Soft to palpation Auscultation: normal bowel sounds Skin: General skin exam: normal color Neuro: Cognition (Neuro): normal cognition Extrem: General: normal to inspection Objective Data Vital Signs Vital Signs: Vital Signs - 24 hr 01/01/21 10:00 01/01/21 10:32 01/01/21 12:00 Temperature 37.1 C Pulse Rate 48 L 50 L Respiratory Rate 23 H 20 Blood Pressure 106/58 L 109/51 L Pulse Oximetry 91 91 92 01/01/21 14:00 01/01/21 14:31 01/01/21 15:56 Temperature 36.7 C Pulse Rate 45 L Respiratory Rate 18 Blood Pressure 115/60 Pulse Oximetry 90 92 01/01/21 16:00 01/01/21 17:30 01/01/21 18:00 Temperature Pulse Rate 49 L 105 H 107 H Respiratory Rate 22 H 16 Blood Pressure 126/64 127/67 Pulse Oximetry 91 95 01/01/21 20:00 01/01/21 22:00 01/02/21 00:00 Temperature 37.0 C 36.4 C Pulse Rate 99 92 92 Respiratory Rate 15 18 17 Blood Pressure 132/73 135/89 119/84 Pulse Oximetry 92 90 96 01/02/21 02:00 01/02/21 04:00 01/02/21 06:00 Temperature 36.8 C Pulse Rate 94 96 95 Respiratory Rate 21 H 17 20 Blood Pressure 115/77 106/61 Pulse Oximetry 91 93 97 01/02/21 07:22 01/02/21 08:00 Temperature 36.8 C Pulse Rate 100 Respiratory Rate 16 Blood Pressure 116/74 Pulse Oximetry 98 98 Intake/Output Intake/Output: Intake & Output 12/30/20 12/31/20 01/01/21 01/02/21 23:59 23:59 23:59 23:59 Intake Total 1500 2820 1000 Output Total 1050 1400 Balance 1500 1770 -400 Meds/Results Medications: Active Medications Generic Name Dose Route Start Last Admin Trade Name Freq PRN Reason Stop Dose Admin Acetaminophen 1,000 mg 01/01/21 15:58 01/01/21 16:10 Acetaminophen 500 Mg Tablet PO 1,000 mg Q6H PRN Administration Mild Pain (1-3) or Fever Hydralazine HCl 20 mg 01/01/21 09:21 Hydralazine Hcl 20 Mg/Ml Vial IV PUSH Q4H PRN Blood Pressure - High Sodium Chloride 1,000 mls @ 75 mls/hr 12/31/20 12:40
[2021-01-02] MEDS: AMIODARONE 360 MG/D5W 200 ML 360 MG/200 ML BAG 33.33 MG IV CONT (10:06)
[2021-01-02] MEDS: AMIODARONE 360 MG/D5W 200 ML 360 MG/200 ML BAG 16.67 MG IV CONT (15:54)
[2021-01-02] MEDS: WARFARIN (*PBKC) 4 MG TABLET PO (16:46)
[2021-01-03] VITALS (16 sets, daily range): BP systolic 111–147; BP diastolic 56–94; PULSE 95–122; RESP 16–22; TEMP 36.1–37.1; O2SAT 94–100
[2021-01-03] MEDS: AMIODARONE 360 MG/D5W 200 ML 360 MG/200 ML BAG 16.67 MG IV CONT ×2 (03:07→15:05)
[2021-01-03 05:10] LABS: Hematocrit 35.2 % (37.0-47.0); Hemoglobin 11.6 g/dL (12.0-15.0); Mean Corpuscular Hemoglobin 30.7 pg (26-34); Mean Corpuscular Volume 93.1 fl (80-100); Mean Platelet Volume 10.2 fl (7.4-10.4); Platelet Count Result 212 k/mm3 (150-375); Red Blood Count 3.78 M/mm3 (4.2-5.4); Red Cell Distribution Width 13.2 % (11.5-14.5); White Blood Count 6.9 K/mm3 (4.5-10.0)
[2021-01-03 05:18] LABS: INR 3.3; Prothrombin Time 32.8 Seconds (11.1-14.7)
[2021-01-03 05:25] LABS: Alanine Aminotransferase 22 U/L (4-35); Albumin Level 3.2 g/dL (3.5-5.1); Alkaline Phosphatase 90 U/L (38-126); Anion Gap 4 mmol/L (8-16); Aspartate Amino Transferase 31 U/L (14-36); Bilirubin,Total 0.6 mg/dL (0.2-1.3); Blood Urea Nitrogen 16 mg/dL (7-17); Carbon Dioxide 30 mmol/L (22-30); Chloride 104 mmol/L (98-107); Estimated CRCL calculation 54 ml/min; Estimated Glomerular Filt Rate > 60; Glucose 98 mg/dL (65-110); Magnesium 1.6 mg/dL (1.6-2.3); Potassium 3.9 mmol/L (3.4-5.0); Sodium 138 mmol/L (137-145)
--- NOTE | 2021-01-03 08:05 | PM.IMPN ---
Progress Note: A&P Assessment and Plan (1) Bradycardia: Code(s): R00.1 - Bradycardia, unspecified Status: Acute (2) Supratherapeutic INR: Code(s): R79.1 - Abnormal coagulation profile Status: Acute (3) Paroxysmal atrial fibrillation: Code(s): I48.0 - Paroxysmal atrial fibrillation Status: Acute (4) Primary hypertension: Code(s): I10 - Essential (primary) hypertension Status: Acute (5) GERD (gastroesophageal reflux disease): Qualifiers: Esophagitis presence: esophagitis presence not specified Qualified Code(s): K21.9 - Gastro-esophageal reflux disease without esophagitis Code(s): K21.9 - Gastro-esophageal reflux disease without esophagitis Status: Acute (6) ASHA (acute kidney injury): Code(s): N17.9 - Acute kidney failure, unspecified Status: Acute (7) Abnormal chest xray: Code(s): R93.89 - Abnormal findings on diagnostic imaging of other specified body structures Status: Acute Additional Plan 80yo lady with afib/aflutter presenting with palpitations, found to be in junctional rhythm with bradycardia. Had been on flecainide and metoprolol at home. Pacer pads placed and started on Dopamine drip and admitted to ICU. Since transitioned to amio drip, with HR in 110s. Metoprolol PRN on as well. Echo showing preserved EF and normal ventricular size. Warfarin continued, with INR 3.3. Noted she is open for possibility of DOAC if insurance & cost permit. Cardiology on board and appreciate any recommendations. ASHA on admission, which has resolved. NPO at midnight, as noted cardiology considering cardioversion tomorrow morning. Time Spent With Patient Time with patient: less than 15 minutes Subjective Date/time seen: 01/03/21 08:05 no acute complaints resting comfortably in bed Review of Systems Review of Systems: All systems reviewed & are unremarkable except as noted in HPI and below Exam Const: General: no acute distress Neck: Neck: no JVD Resp: Auscultation: clear to auscultation bilaterally Cardio: Rate: regular rate Rhythm: regular rhythm GI: GI Palp: Yes Soft to palpation and No Tenderness to palpation present (GI) Objective Data Vital Signs Vital Signs: Vital Signs - 24 hr 01/02/21 10:00 01/02/21 10:06 01/02/21 11:47 Temperature Pulse Rate 117 H 105 H Respiratory Rate 20 Blood Pressure 98/58 L Pulse Oximetry 93 96 01/02/21 12:00 01/02/21 14:00 01/02/21 15:54 Temperature 98.4 F Pulse Rate 94 113 H 92 Respiratory Rate 18 Blood Pressure 94/61 L Pulse Oximetry 98 01/02/21 16:00 01/02/21 17:56 01/02/21 19:21 Temperature 98.5 F 96.9 F L Pulse Rate 90 109 H Respiratory Rate 17 20 Blood Pressure 117/67 142/98 H Pulse Oximetry 96 100 01/02/21 20:00 01/02/21 20:05 01/02/21 21:29 Temperature Pulse Rate 106 H Respiratory Rate Blood Pressure Pulse Oximetry 96 96 01/02/21 22:00 01/02/21 23:42 01/03/21 00:00 Temperature 96.6 F L Pulse Rate 100 111 H 106 H Respiratory Rate 20 Blood Pressure 128/68 Pulse Oximetry 100 100 01/03/21 02:00 01/03/21 03:07 01/03/21 03:51 Temperature 98.6 F Pulse Rate 95 118 H 116 H Respiratory Rate 20 Blood Pressure 133/84 Pulse Oximetry 97 01/03/21 04:00 01/03/21 06:00 Temperature Pulse Rate 114 H 99 Respiratory Rate Blood Pressure Pulse Oximetry 97 Intake/Output Intake/Output: Intake & Output 12/31/20 01/01/21 01/02/21 01/03/21 23:59 23:59 23:59 23:59 Intake Total 1500 2820 2720 200 Output Total 1050 2400 1500 Balance 1500 1770 320 -1300 Meds/Results Medications: Active Medications Generic Name Dose Route Start Last Admin Trade Name Freq PRN Reason Stop Dose Admin Acetaminophen 1,000 mg 01/01/21 15:58 01/01/21 16:10 Acetaminophen 500 Mg Tablet PO 1,000 mg Q6H PRN Administration Mild Pain (1-3) or Fever Hydralazine HCl 20 mg 01/01/21 09:21
[2021-01-03] MEDS: PANTOPRAZOLE 40 MG TABLET PO (09:46)
--- NOTE | 2021-01-03 11:20 | PM.PNCARD ---
Progress Note: A&P Assessment and Plan (1) Atrial fibrillation with RVR: Code(s): I48.91 - Unspecified atrial fibrillation Status: Acute Assessment and Plan: Patient currently in atrial fibrillation with RVR. She has been initiated on IV amiodarone. Patient was previously on sotalol and flecainide. Patient does not recall being cardioverted in the past. At this time, continue IV amiodarone and if patient remains in AFib with RVR, consider DC cardioversion prior to discharge. Need for REUBEN will depend on if patient has been adequately anticoagulated with INR in therapeutic range in last 4 weeks. Will keep NPO from midnight in case cardioversion is considered tomorrow. Spoke with patient about option of switching warfarin to one of the direct oral anticoagulants. She seemed to be agreeable with that option and would like to think about it, although she had some concerns about cost. (2) Chronic anticoagulation: Code(s): Z79.01 - shelter (current) use of anticoagulants Status: Acute Assessment and Plan: Currently on warfarin, current INR 3.3. Subjective Date/time seen: 01/03/21 11:20 Date of service 01/03/2021-patient reports modest improvement in her dizziness. Denies chest pain or shortness of breath at rest. On telemetry, she has been in atrial fibrillation with heart rate in 110s. Patient is currently on IV amiodarone. Exam Narrative: PHYSICAL EXAMINATION: GENERAL: Obese, Alert, oriented, no acute distress MENTAL STATUS: affect appropriate to mood EYES: Extraocular movements intact, no pallor EARS: External ears appear normal, hearing grossly normal NOSE: Normal and patent, no discharge MOUTH: Mucous membranes moist, tongue normal NECK: Supple, no JVD CHEST: Scattered crackles at base HEART: Tachycardia, irregularly irregular rhythm ABDOMEN: Soft, obese NEUROLOGICAL: Alert, oriented, normal speech, no gross motor deficits MUSCULOSKELETAL: No major deformity, no amputation EXTREMITIES: Trace pedal edema, no clubbing, no cyanosis SKIN: Ecchymosis in the arms PSYCHIATRIC: Normal mood, appropriate affect Objective Data Vital Signs Vital Signs: Vital Signs - 24 hr 01/02/21 11:47 01/02/21 12:00 01/02/21 14:00 Temperature 36.9 C Pulse Rate 94 113 H Respiratory Rate 18 Blood Pressure 94/61 L Pulse Oximetry 96 98 01/02/21 15:54 01/02/21 16:00 01/02/21 17:56 Temperature 36.9 C Pulse Rate 92 90 109 H Respiratory Rate 17 Blood Pressure 117/67 Pulse Oximetry 96 01/02/21 19:21 01/02/21 20:00 01/02/21 20:05 Temperature 36.1 C L Pulse Rate 106 H Respiratory Rate 20 Blood Pressure 142/98 H Pulse Oximetry 100 96 01/02/21 21:29 01/02/21 22:00 01/02/21 23:42 Temperature 35.9 C L Pulse Rate 100 111 H Respiratory Rate 20 Blood Pressure 128/68 Pulse Oximetry 96 100 01/03/21 00:00 01/03/21 02:00 01/03/21 03:07 Temperature Pulse Rate 106 H 95 118 H Respiratory Rate Blood Pressure Pulse Oximetry 100 01/03/21 03:51 01/03/21 04:00 01/03/21 06:00 Temperature 37.0 C Pulse Rate 116 H 114 H 99 Respiratory Rate 20 Blood Pressure 133/84 Pulse Oximetry 97 97 01/03/21 08:00 01/03/21 10:00 Temperature 36.6 C Pulse Rate 102 H 122 H Respiratory Rate 16 Blood Pressure 147/90 H Pulse Oximetry 94 Intake/Output Intake/Output: Intake & Output 12/31/20 01/01/21 01/02/21 01/03/21 23:59 23:59 23:59 23:59 Intake Total 1500 2820 2720 440 Output Total 1050 2400 1500 Balance 1500 1770 320 -1060 Meds/Results Medications: Active Medications Generic Name Dose Route Start Last Admin Trade Name Freq PRN Reason Stop Dose Admin Acetaminophen 1,000 mg 01/01/21 15:58 01/01/21 16:10 Acetaminophen 500 Mg Tablet PO 1,000 mg Q6H PRN Administration Mild Pain (1-3) or Fever Hydralazine HCl 20 mg 01/01/21 09:21 Hydralazine Hcl 20 Mg/Ml Vial IV PUSH Q4H PRN Blood
[2021-01-03] MEDS: WARFARIN (*PBKC) 4 MG TABLET PO (17:47)
[2021-01-03 18:23] LABS: SARS-CoV-2 RNA PCR Negative
[2021-01-04] VITALS (19 sets, daily range): BP systolic 118–151; BP diastolic 77–99; PULSE 101–127; RESP 18–20; TEMP 36–37.6; O2SAT 92–100
[2021-01-04] MEDS: AMIODARONE 360 MG/D5W 200 ML 360 MG/200 ML BAG 16.67 MG IV CONT (03:30)
[2021-01-04 05:07] LABS: Basophils Percent Auto 0.1 % (0.2-1.2); Eosinophils Absolute Auto 0.2 K/mm3 (0-0.3); Eosinophils Percent Auto 2.2 % (0-4.4); Hematocrit 36.1 % (37.0-47.0); Hemoglobin 11.8 g/dL (12.0-15.0); Immature Granulocyte Absolute 0.03 K/mm3 (0.00-0.031); Immature Granulocyte Percent A 0.4 % (0-0.5); Lymphocytes Absolute Auto 0.91 K/mm3 (0.9-3.2); Lymphocytes Percent Auto 13.5 % (18.3-44.2); Mean Corpuscular HGB Conc 32.7 g/dl (32-36); Mean Corpuscular Volume 91.9 fl (80-100); Mean Platelet Volume 9.7 fl (7.4-10.4); Monocytes Absolute Auto 0.7 K/mm3 (0.1-0.6); Monocytes Percent Auto 10.1 % (2.6-8.5); Neutrophils Absolute Auto 4.9 K/mm3 (1.3-6.7); Neutrophils Percent Auto 73.7 % (45.5-73.1); Platelet Count Result 211 k/mm3 (150-375); Red Blood Count 3.93 M/mm3 (4.2-5.4); Red Cell Distribution Width 13.2 % (11.5-14.5); White Blood Count 6.7 K/mm3 (4.5-10.0)
[2021-01-04 05:16] LABS: Prothrombin Time 29.9 Seconds (11.1-14.7)
[2021-01-04 05:18] LABS: Alanine Aminotransferase 19 U/L (4-35); Alkaline Phosphatase 80 U/L (38-126); Anion Gap 4 mmol/L (8-16); Aspartate Amino Transferase 28 U/L (14-36); Bilirubin,Total 0.7 mg/dL (0.2-1.3); Blood Urea Nitrogen 13 mg/dL (7-17); Carbon Dioxide 33 mmol/L (22-30); Chloride 101 mmol/L (98-107); Estimated CRCL calculation 55 ml/min; Estimated Glomerular Filt Rate > 60; Glucose 104 mg/dL (65-110); Magnesium 1.3 mg/dL (1.6-2.3); Phosphorus 3.2 mg/dL (2.5-4.5); Potassium 3.9 mmol/L (3.4-5.0); Sodium 138 mmol/L (137-145)
[2021-01-04 06:23] LABS: Triiodothyronine T3 Free 2.4 pg/mL (2.3-4.2)
--- NOTE | 2021-01-04 08:59 | PM.IMPN ---
Progress Note: A&P Assessment and Plan (1) Bradycardia: Code(s): R00.1 - Bradycardia, unspecified Status: Acute (2) Supratherapeutic INR: Code(s): R79.1 - Abnormal coagulation profile Status: Acute Assessment and Plan: resolved in therapeutic range continue Coumadin and daily INR monitoring (3) Paroxysmal atrial fibrillation: Code(s): I48.0 - Paroxysmal atrial fibrillation Status: Acute Assessment and Plan: see above (4) Primary hypertension: Code(s): I10 - Essential (primary) hypertension Status: Acute Assessment and Plan: p.r.n. hydralazine (5) GERD (gastroesophageal reflux disease): Qualifiers: Esophagitis presence: esophagitis presence not specified Qualified Code(s): K21.9 - Gastro-esophageal reflux disease without esophagitis Code(s): K21.9 - Gastro-esophageal reflux disease without esophagitis Status: Acute Assessment and Plan: Continue PPI (6) ASHA (acute kidney injury): Code(s): N17.9 - Acute kidney failure, unspecified Status: Acute (7) Abnormal chest xray: Code(s): R93.89 - Abnormal findings on diagnostic imaging of other specified body structures Status: Acute Assessment and Plan: her chest x-ray shows opacities on right lung base and patient does have few crackles on exam but otherwise she is asymptomatic she denies any cough fever and has a normal WBC incentive spirometry monitor Additional Plan Understand cardiology considering cardioversion to be done today possibly. Resume diet as practical. In the mean time, continue amiodarone drip and coumadin, inr is therapuetic at 3. Time Spent With Patient Time with patient: less than 15 minutes Subjective Date/time seen: 01/04/21 08:59 resting comfdortably no acute complaints Review of Systems Review of Systems: All systems reviewed & are unremarkable except as noted in HPI and below Exam Const: General: no acute distress Neck: Neck: no JVD Resp: Effort & Inspection: normal respiratory effort Auscultation: clear to auscultation bilaterally Cardio: Rate: regular rate Rhythm: regular rhythm GI: Inspection: non-distended Objective Data Vital Signs Vital Signs: Vital Signs - 24 hr 01/03/21 10:00 01/03/21 12:00 01/03/21 14:00 Temperature 98.7 F Pulse Rate 122 H 107 H 115 H Respiratory Rate 16 Blood Pressure 111/94 H Pulse Oximetry 95 01/03/21 16:00 01/03/21 18:00 01/03/21 18:56 Temperature 98.7 F 98.7 F Pulse Rate 109 H 106 H 115 H Respiratory Rate 22 H 20 Blood Pressure 122/66 117/56 L Pulse Oximetry 97 97 01/03/21 20:00 01/03/21 22:00 01/03/21 23:27 Temperature 96.9 F L Pulse Rate 118 H 102 H 118 H Respiratory Rate 20 18 Blood Pressure 133/89 Pulse Oximetry 97 94 01/04/21 00:00 01/04/21 02:00 01/04/21 03:30 Temperature Pulse Rate 126 H 124 H 126 H Respiratory Rate 18 Blood Pressure Pulse Oximetry 94 01/04/21 04:00 01/04/21 06:00 01/04/21 08:02 Temperature 96.8 F L 98.0 F Pulse Rate 106 H 108 H 109 H Respiratory Rate 20 18 Blood Pressure 141/99 H 142/81 H Pulse Oximetry 100 96 Intake/Output Intake/Output: Intake & Output 01/01/21 01/02/21 01/03/21 01/04/21 23:59 23:59 23:59 23:59 Intake Total 2820 2720 1620 200 Output Total 1050 2400 2250 1000 Balance 1773 362 -979 -982 Meds/Results Medications: Active Medications Generic Name Dose Route Start Last Admin Trade Name Freq PRN Reason Stop Dose Admin Acetaminophen 1,000 mg 01/01/21 15:58 01/01/21 16:10 Acetaminophen 500 Mg Tablet PO 1,000 mg Q6H PRN Administration Mild Pain (1-3) or Fever Hydralazine HCl 20 mg 01/01/21 09:21 Hydralazine Hcl 20 Mg/Ml Vial IV PUSH Q4H PRN Blood Pressure - High Amiodarone HCl/Dextrose 360 mg in 200 mls @ 16.667 mls/hr 01/02/21 16:00 01/04/21 03:30 Nexterone 360 Mg/D5w 200 Ml IV CONT 0.5 mg
--- NOTE | 2021-01-04 09:57 | PM.PNCARD ---
Progress Note: A&P Additional Plan Stop amiodarone infusion Start amiodarone at 400 mg daily at this time. Consider discharge early this afternoon as long as her heart rate is reasonable and she is either asymptomatic or minimally symptomatic Len Parker MD [facility] Subjective Date/time seen: Date of service: 01/04/21 09:57 Interval history: Follow-up visit in this 80-year-old lady with: Symptomatic recurrent atrial fibrillation. She had been treated with sotalol in the past with good success but then became resistant to this with significant AF burden. Recently she was transitioned to the combination of flecainide and metoprolol. She entered the hospital with symptomatic bradycardia and was in sinus rhythm alternating with junctional rhythm. These medications were stopped and as expected she is now back in atrial fibrillation heart rate is ranging between 90 and 110. While at bed rest she is essentially asymptomatic. Discussed options with patient in detail in terms of excepting chronic atrial fibrillation or starting amiodarone at this time. Date of service 01/04/2021: Patient is asymptomatic still receiving intravenous amiodarone now for the last couple of days she is well rate controlled but persisting in atrial fib. Long discussion with the patient again about management strategy. I would like to transition her to oral amiodarone 400 mg daily at this time and consider discharge a little later in the day today if she remains well rate controlled. I will then see her in the office in about 1 month and if she is persisting in AFib attempt another cardioversion. Yesterday 5 partner discussed cardioverting her today which I would prefer not to do given the long half-life of amiodarone and the better chance of cardioversion succeed give her a longer oral loading dose. Exam Narrative: PHYSICAL EXAMINATION: GENERAL: Obese, Alert, oriented, no acute distress MENTAL STATUS: affect appropriate to mood EYES: Extraocular movements intact, no pallor EARS: External ears appear normal, hearing grossly normal NOSE: Normal and patent, no discharge MOUTH: Mucous membranes moist, tongue normal NECK: Supple, no JVD CHEST: Scattered crackles at base HEART: Tachycardia, irregularly irregular rhythm ABDOMEN: Soft, obese NEUROLOGICAL: Alert, oriented, normal speech, no gross motor deficits MUSCULOSKELETAL: No major deformity, no amputation EXTREMITIES: Trace pedal edema, no clubbing, no cyanosis SKIN: Ecchymosis in the arms PSYCHIATRIC: Normal mood, appropriate affect Const: General: comfortable and no acute distress Other: Over obese elderly lady pleasant comfortable cooperative no distress HENMT: General nose exam: Normal nares present Mouth: Yes moist mucous membranes Eyes: Sclera: sclerae normal Pupils: Equal, round and reactive pupils present Neck: Neck: supple and no JVD Chest: Other: No reproducible chest wall pain to palpation Resp: Effort & Inspection: normal respiratory effort Auscultation: clear to auscultation bilaterally Cardio: Rate: bradycardic Rhythm: regular rhythm and abnormal rhythm irregularly irregular GI: Inspection: normal to inspection Auscultation: normal bowel sounds Skin: General skin exam: normal color Neuro: Cranial nerves: Yes Equal, round and reactive pupils present and Yes Normal hearing present Cognition (Neuro): normal cognition Speech: normal speech Extrem: General: normal to inspection and no edema Psych: Mental Status: mental status grossly normal Objective Data Vital Signs Vital Signs: Vital Signs - 24 hr 01/03/21 10:00 01/03/21 12:00 01/03/21 14:00 Temperature 37.1 C Pulse Rate 122 H 107 H 115 H Respiratory Rate 16 Blood Pressure 111/94 H Pulse Oximetry 95 01/03/21 16:00 01/03/21 18:00 01/03/21 18:56 Temperature 37.1 C 37.1 C Pulse Rate 109 H 106 H 115 H Respiratory Rate 22 H 20 Blood Pressure 122/66 117/56 L Pulse Oximetry 97 97
[2021-01-04] MEDS: AMIODARONE HCL 200 MG TABLET 400 MG PO (10:25)
[2021-01-04] MEDS: PANTOPRAZOLE 40 MG TABLET PO (11:48)
--- NOTE | 2021-01-04 11:57 | PCPTNOTE ---
Attempted to see patient for PT, however when patient was performing bed mobility and bed transfer patient's heart rate increased to 150s. RN came into room and reported patient needed to lay back down and hold on therapy at this time.
--- NOTE | 2021-01-04 13:01 | PCOTNOTE ---
Per RN , do not see due to having increased HR, unable at this time to tolerate.
[2021-01-04] MEDS: TOLNAFTATE 1% POWDER 45 GM BTL 1 APPLIC TOPICAL ×2 (18:11→21:26)
[2021-01-04] MEDS: WARFARIN (*PBKC) 4 MG TABLET PO (18:11)
--- NOTE | 2021-01-04 18:12 | PC.NURSE ---
Verified with Pharmacy INR of 3.0 and ok to give warfarin
[2021-01-05] VITALS (20 sets, daily range): BP systolic 130–147; BP diastolic 69–106; PULSE 72–157; RESP 16–24; TEMP 36–37.9; O2SAT 92–99
[2021-01-05 05:43] LABS: Basophils Percent Auto 0.1 % (0.2-1.2); Eosinophils Absolute Auto 0.1 K/mm3 (0-0.3); Eosinophils Percent Auto 1.3 % (0-4.4); Hemoglobin 12.3 g/dL (12.0-15.0); Immature Granulocyte Absolute 0.02 K/mm3 (0.00-0.031); Immature Granulocyte Percent A 0.3 % (0-0.5); Lymphocytes Percent Auto 12.5 % (18.3-44.2); Mean Corpuscular HGB Conc 33.2 g/dl (32-36); Mean Corpuscular Hemoglobin 30.1 pg (26-34); Mean Corpuscular Volume 90.5 fl (80-100); Mean Platelet Volume 10.3 fl (7.4-10.4); Monocytes Absolute Auto 0.9 K/mm3 (0.1-0.6); Monocytes Percent Auto 11.1 % (2.6-8.5); Neutrophils Percent Auto 74.7 % (45.5-73.1); Platelet Count Result 238 k/mm3 (150-375); Red Blood Count 4.09 M/mm3 (4.2-5.4); Red Cell Distribution Width 13.2 % (11.5-14.5)
[2021-01-05 05:57] LABS: Prothrombin Time 30.5 Seconds (11.1-14.7)
[2021-01-05 05:59] LABS: Alanine Aminotransferase 17 U/L (4-35); Albumin Level 3.1 g/dL (3.5-5.1); Alkaline Phosphatase 86 U/L (38-126); Anion Gap 6 mmol/L (8-16); Aspartate Amino Transferase 26 U/L (14-36); Bilirubin,Total 1.1 mg/dL (0.2-1.3); Blood Urea Nitrogen 12 mg/dL (7-17); Carbon Dioxide 33 mmol/L (22-30); Chloride 96 mmol/L (98-107); Estimated CRCL calculation 54 ml/min; Estimated Glomerular Filt Rate > 60; Glucose 104 mg/dL (65-110); Magnesium 1.2 mg/dL (1.6-2.3); Phosphorus 3.1 mg/dL (2.5-4.5); Potassium 3.7 mmol/L (3.4-5.0); Sodium 135 mmol/L (137-145)
--- NOTE | 2021-01-05 08:02 | PM.DS ---
DS: Admitting Diagnosis Discharge Date January 05 Admitting Diagnosis Dizziness and palpitations DS: Discharge Diagnosis Discharge Diagnosis (1) Atrial fibrillation with RVR: Code(s): I48.91 - Unspecified atrial fibrillation Status: Acute DS: Summary Hospital Course Reason for hospitalization: Dizziness and palpitations Hospital Course: Patient is needing 1-year-old female who lives at home, presenting dizziness and palpitations related to her atrial fibrillation and atrial flutter. She is on metoprolol and flecainide at home, with which she is adherent, however has frequent episodes like this where heart flutters and she has palpitations and feels dizzy. Her heart rate is difficult to control, because she has burst of AFib with RVR, but also intermittent bradycardia relating to an intermittent junctional rhythm. She was seen by Cardiology, initially on a dopamine drip, converted to an amiodarone drip, which was then converted to p.o. amiodarone. Patient was set for discharge, however immediately prior, started feeling palpitations again heart rate was elevated to the 130s or 40s. Discussed case with Cardiology advised the a for cardioversion, so she was cardioversion performed inpatient early afternoon on January 06 2021, and since then has been in sinus rhythm. Cardiology comfortable with discharge today on p.o. amiodarone. Plan for discharge in a few hours. Anticoagulation also discussed, as Coumadin is dosed must be ingested in the setting of amiodarone given effect on liver cytochrome enzymes, however patient does not feel that she can manage the after insurance cost of the DOAC, and so will continue with warfarin. Discussed that this will likely mean dose changing in the future and will need close follow with [facility] primary care who manages INR and warfarin dosing. Patient understands. Instructed to return to emergency room, or call 911 immediately if symptoms return or worsen. Status at Discharge Functional status at discharge: uses cane/walker Time Spent with Patient Time attestation: Total time spent providing and/or coordinating discharge services: Time spent: Less than 30 minutes Exam Const: General: no acute distress Neck: Neck: no JVD Resp: Effort & Inspection: normal respiratory effort Auscultation: clear to auscultation bilaterally Cardio: Rate: regular rate Rhythm: regular rhythm GI: GI Palp: Yes Soft to palpation and No Tenderness to palpation present (GI) DS: Data Data Completed and Pending Labs on day of discharge: Labs from last 24 hours 01/05/21 01/05/21 01/05/21 05:02 05:02 05:02 WBC 8.0 RBC 4.09 L Hgb 12.3 Hct 37.0 MCV 90.5 MCH 30.1 MCHC 33.2 RDW 13.2 Plt Count 238 MPV 10.3 Immature Gran % (Auto) 0.3 Neut % (Auto) 74.7 H Lymph % (Auto) 12.5 L [place] % (Auto) 11.1 H Eos % (Auto) 1.3 Baso % (Auto) 0.1 L Lymph # (Auto) 1.00 [place] # (Auto) 0.9 H Eos # (Auto) 0.1 Baso # (Auto) 0.0 Abs Immat Gran (auto) 0.02 Absolute Neuts (auto) 6.0 Absolute Nucleated RBC 0.0 Nucleated RBC % 0.0 PT 30.5 H INR 3.0 Sodium 135 L Potassium 3.7 Chloride 96 L Carbon Dioxide 33 H Anion Gap 6 L BUN 12 Creatinine 0.80 Estim Creat Clear Calc 54 Estimated GFR > 60 Glucose 104 Calcium 9.0 Phosphorus 3.1 Magnesium 1.2 L Total Bilirubin 1.1 AST 26 ALT 17 Alkaline Phosphatase 86 Total Protein 6.0 L Albumin 3.1 L Discharge Plan Discharge Attending physician on discharge: Susie De Paz Consulting providers: Guero Gr Adarsh Discharging Clinician: Susie De Paz Patient Disposition: Home, Self-Care Activity: no shower, no straining and no driving Diet: as tolerated, heart healthy, low cholesterol and low fat Discharge Instructions:
[2021-01-05] MEDS: AMIODARONE HCL 200 MG TABLET 400 MG PO (08:32)
[2021-01-05] MEDS: TOLNAFTATE 1% POWDER 45 GM BTL 1 APPLIC TOPICAL ×2 (08:32→20:19)
[2021-01-05] MEDS: PANTOPRAZOLE 40 MG TABLET PO (08:32)
--- NOTE | 2021-01-05 10:17 | PM.IMPN ---
Progress Note: A&P Assessment and Plan (1) Atrial fibrillation with RVR: Code(s): I48.91 - Unspecified atrial fibrillation Status: Acute (2) Bradycardia: Code(s): R00.1 - Bradycardia, unspecified Status: Acute (3) Atrial fibrillation and flutter: Code(s): I48.91 - Unspecified atrial fibrillation; I48.92 - Unspecified atrial flutter Status: Acute (4) Primary hypertension: Code(s): I10 - Essential (primary) hypertension Status: Acute (5) Prediabetes: Code(s): R73.03 - Prediabetes Status: Acute (6) Obesity, morbid, BMI 40.0-49.9: Code(s): E66.01 - Morbid (severe) obesity due to excess calories Status: Acute (7) Chronic low back pain with left-sided sciatica: Qualifiers: Back pain laterality: left Qualified Code(s): M54.42 - Lumbago with sciatica, left side; G89.29 - Other chronic pain Code(s): M54.42 - Lumbago with sciatica, left side; G89.29 - Other chronic pain Status: Acute (8) GERD (gastroesophageal reflux disease): Qualifiers: Esophagitis presence: esophagitis presence not specified Qualified Code(s): K21.9 - Gastro-esophageal reflux disease without esophagitis Code(s): K21.9 - Gastro-esophageal reflux disease without esophagitis Status: Acute Additional Plan Transitioned off amio drip to po amio yesterday. Planning for dc today on po amio with plan for outpatient cardioversion, however she started feeling nt up to discharge - lethargy and tachy to 130s and tachypneic. Case discussed with cardiology, and they would like to keep her here and potentially cardiovert prior to discharge. Time Spent With Patient Time with patient: less than 15 minutes Subjective Date/time seen: 01/05/21 10:17 no acute complaints Review of Systems Review of Systems: All systems reviewed & are unremarkable except as noted in HPI and below Exam Const: General: no acute distress Neck: Neck: no JVD Resp: Effort & Inspection: normal respiratory effort Auscultation: clear to auscultation bilaterally Cardio: Rate: regular rate Rhythm: regular rhythm GI: Inspection: non-distended Objective Data Vital Signs Vital Signs: Vital Signs - 24 hr 01/04/21 10:25 01/04/21 11:20 01/04/21 12:00 Temperature 98 F Pulse Rate 109 H 109 H 127 H Respiratory Rate 20 Blood Pressure 151/97 H Pulse Oximetry 94 01/04/21 14:00 01/04/21 14:38 01/04/21 16:00 Temperature Pulse Rate 103 H 111 H Respiratory Rate Blood Pressure Pulse Oximetry 92 94 01/04/21 16:58 01/04/21 18:00 01/04/21 19:34 Temperature 98.7 F 99.6 F Pulse Rate 117 H 115 H 123 H Respiratory Rate 20 20 Blood Pressure 118/78 138/77 Pulse Oximetry 94 94 01/04/21 20:00 01/04/21 22:00 01/05/21 00:00 Temperature 97.2 F L Pulse Rate 108 H 126 H 136 H Respiratory Rate 20 20 Blood Pressure 146/92 H Pulse Oximetry 94 99 01/05/21 02:00 01/05/21 04:00 01/05/21 06:00 Temperature 97.7 F Pulse Rate 157 H 128 H 128 H Respiratory Rate 20 Blood Pressure 142/69 H Pulse Oximetry 95 01/05/21 08:08 Temperature 97.4 F L Pulse Rate 134 H Respiratory Rate 24 H Blood Pressure 146/96 H Pulse Oximetry 92 Intake/Output Intake/Output: Intake & Output 01/02/21 01/03/21 01/04/21 01/05/21 23:59 23:59 23:59 23:59 Intake Total 2720 1620 860 Output Total 2400 2250 2100 1000 Balance 372 -248 -1240 -1000 Meds/Results Medications: Active Medications Generic Name Dose Route Start Last Admin Trade Name Freq PRN Reason Stop Dose Admin Acetaminophen 1,000 mg 01/01/21 15:58 01/01/21 16:10 Acetaminophen 500 Mg Tablet PO 1,000 mg Q6H PRN Administration Mild Pain (1-3) or Fever Amiodarone HCl 400 mg 01/04/21 10:00 01/05/21 08:32 Amiodarone Hcl 200 Mg Tablet PO 400 mg DAILY@0800 MARIA D Administration Hydralazine HCl 20 mg 01/01/21 09:21 Hydralazine Hcl 20 Mg/Ml Vial IV PU
--- NOTE | 2021-01-05 10:27 | PM.PNCARD ---
Progress Note: A&P Assessment and Plan (1) Atrial fibrillation with RVR: Code(s): I48.91 - Unspecified atrial fibrillation Status: Acute Assessment and Plan: Patient currently in atrial fibrillation with RVR. She has been initiated on IV amiodarone. Patient was previously on sotalol and flecainide. Undergoing amiodarone loading, currently on amio 400mg p.o. daily. Unfortunately thisi is nor providing adequate rate control today, her rate is mostly in the 130's-140's. Discussed with Dr. Parker - recommendation to restart metoprolol for additional rate control. If her rate is not reasonably controlled by tomorrow with the addition of metoprolol, will plan for DC cardioversion. Will make her NPO after midnight tonight in anticipation of this. On warfarin for a/c - ? switch to DOAC? (2) Chronic anticoagulation: Code(s): Z79.01 - half-way (current) use of anticoagulants Status: Acute Assessment and Plan: Currently on warfarin, current INR 3.0. Subjective Date/time seen: 01/05/21 10:27 Interval history: Follow-up visit in this 80-year-old lady with: Symptomatic recurrent atrial fibrillation. She had been treated with sotalol in the past with good success but then became resistant to this with significant AF burden. Recently she was transitioned to the combination of flecainide and metoprolol. She entered the hospital with symptomatic bradycardia and was in sinus rhythm alternating with junctional rhythm. These medications were stopped and as expected she is now back in atrial fibrillation heart rate is ranging between 90 and 110. While at bed rest she is essentially asymptomatic. Discussed options with patient in detail in terms of excepting chronic atrial fibrillation or starting amiodarone at this time. Date of service 01/04/2021: Patient is asymptomatic still receiving intravenous amiodarone now for the last couple of days she is well rate controlled but persisting in atrial fib. Long discussion with the patient again about management strategy. I would like to transition her to oral amiodarone 400 mg daily at this time and consider discharge a little later in the day today if she remains well rate controlled. I will then see her in the office in about 1 month and if she is persisting in AFib attempt another cardioversion. Yesterday 5 partner discussed cardioverting her today which I would prefer not to do given the long half-life of amiodarone and the better chance of cardioversion succeed give her a longer oral loading dose. Date of service 01/05/2021: This morning she has not been rate controlled with heart rate consistently 120-145 while laying in bed. She is complaining of dizziness. Denies shortness of breath, chest pain, palpitations. Review of Systems Review of Systems: All systems reviewed & are unremarkable except as noted in HPI and below Constitutional: Constitutional: Denies excessive sweating, Denies headache(s) and Reports weakness Eyes: Eyes: Denies blurry vision ENT: Reports Normal hearing present, Denies headache(s) and Denies neck pain Cardiovascular: Cardiovascular: Denies chest pain, Reports lightheadedness and Reports dyspnea Respiratory: Respiratory: Reports dyspnea Gastrointestinal: Gastrointestinal: Denies abdominal pain Genitourinary: Genitourinary: Denies flank pain Musculoskeletal: Musculoskeletal: Denies back pain and Denies neck pain Integumentary/Breasts: Skin/Breast: Denies dry skin Neurologic: Reports Normal hearing present, Denies headache(s) and Reports weakness Psychiatric: Psychiatric: Denies anxiety Endocrine: Endocrine: Denies excessive sweating Hematologic/Lymphatic: Hematologic/Lymphatic: Denies easy bleeding Allergic/Immunologic: Allergic/Immunologic: Denies GI upset with certain foods Exam Const: General: comfortable and no acute distress Other: Obese elderly lady pleasant, comfortable, cooperative, no distress HENMT: Gener
--- NOTE | 2021-01-05 10:36 | PCOTNOTE ---
Attempted to see patient at this time for skilled OT session. Per RN, patient is sustaining increased heart rate at this time and therapy session is not a good idea. Will check back in later for a second attempt if possible and if RN states patient is okay to be seen. Will continue per OT POC accordingly.
--- NOTE | 2021-01-05 13:28 | PCOTNOTE ---
Attempted to see patient this PM for a second time. Per RN, patient's heart rate still too high and unstable to see for OT treatment session. RN says to hold therapy this date and states possible cardioversion happening for patient tomorrow. Will continue per OT POC accordingly.
--- NOTE | 2021-01-05 13:45 | PC.NURSE ---
On 01/05/21, the student, [Bev Linda], provided care and completed [facility] documentation on this patient. I have reviewed the student's documentation and agree with the findings.
--- NOTE | 2021-01-05 14:24 | PCPTNOTE ---
Per VICKIE: nursing asked to hold on therapy today due to increase in heart rate.
[2021-01-05] MEDS: METOPROLOL TARTRATE 12.5 MG TABLET PO ×2 (15:41→20:20)
[2021-01-05] MEDS: WARFARIN (*PBKC) 4 MG TABLET PO (20:20)
[2021-01-06] VITALS (19 sets, daily range): BP systolic 83–147; BP diastolic 51–98; PULSE 61–152; RESP 15–20; TEMP 36.2–36.5; O2SAT 92–100
[2021-01-06 05:16] LABS: Basophils Percent Auto 0.1 % (0.2-1.2); Eosinophils Absolute Auto 0.1 K/mm3 (0-0.3); Eosinophils Percent Auto 1.4 % (0-4.4); Hemoglobin 12.3 g/dL (12.0-15.0); Immature Granulocyte Absolute 0.04 K/mm3 (0.00-0.031); Immature Granulocyte Percent A 0.5 % (0-0.5); Lymphocytes Absolute Auto 1.06 K/mm3 (0.9-3.2); Lymphocytes Percent Auto 12.3 % (18.3-44.2); Mean Corpuscular HGB Conc 33.2 g/dl (32-36); Mean Corpuscular Hemoglobin 30.5 pg (26-34); Mean Corpuscular Volume 91.8 fl (80-100); Mean Platelet Volume 10.4 fl (7.4-10.4); Monocytes Absolute Auto 1.1 K/mm3 (0.1-0.6); Monocytes Percent Auto 12.2 % (2.6-8.5); Neutrophils Absolute Auto 6.3 K/mm3 (1.3-6.7); Neutrophils Percent Auto 73.5 % (45.5-73.1); Platelet Count Result 209 k/mm3 (150-375); Red Blood Count 4.03 M/mm3 (4.2-5.4); Red Cell Distribution Width 13.5 % (11.5-14.5); White Blood Count 8.6 K/mm3 (4.5-10.0)
[2021-01-06 05:38] LABS: Alanine Aminotransferase 16 U/L (4-35); Albumin Level 3.4 g/dL (3.5-5.1); Alkaline Phosphatase 72 U/L (38-126); Anion Gap 4 mmol/L (8-16); Aspartate Amino Transferase 31 U/L (14-36); Bilirubin,Total 1.7 mg/dL (0.2-1.3); Blood Urea Nitrogen 14 mg/dL (7-17); Calcium 8.6 mg/dL (8.4-10.2); Carbon Dioxide 35 mmol/L (22-30); Chloride 94 mmol/L (98-107); Estimated CRCL calculation 54 ml/min; Estimated Glomerular Filt Rate > 60; Glucose 102 mg/dL (65-110); Magnesium 1.3 mg/dL (1.6-2.3); Phosphorus 3.4 mg/dL (2.5-4.5); Potassium 3.6 mmol/L (3.4-5.0); Sodium 133 mmol/L (137-145)
[2021-01-06 06:05] LABS: INR 2.7
--- NOTE | 2021-01-06 07:51 | PM.IMPN ---
Progress Note: A&P Assessment and Plan (1) Atrial fibrillation with RVR: Code(s): I48.91 - Unspecified atrial fibrillation Status: Acute (2) Bradycardia: Code(s): R00.1 - Bradycardia, unspecified Status: Acute (3) Atrial fibrillation and flutter: Code(s): I48.91 - Unspecified atrial fibrillation; I48.92 - Unspecified atrial flutter Status: Acute (4) Primary hypertension: Code(s): I10 - Essential (primary) hypertension Status: Acute Assessment and Plan: p.r.n. hydralazine (5) Prediabetes: Code(s): R73.03 - Prediabetes Status: Acute (6) Obesity, morbid, BMI 40.0-49.9: Code(s): E66.01 - Morbid (severe) obesity due to excess calories Status: Acute (7) Chronic low back pain with left-sided sciatica: Qualifiers: Back pain laterality: left Qualified Code(s): M54.42 - Lumbago with sciatica, left side; G89.29 - Other chronic pain Code(s): M54.42 - Lumbago with sciatica, left side; G89.29 - Other chronic pain Status: Acute (8) GERD (gastroesophageal reflux disease): Qualifiers: Esophagitis presence: esophagitis presence not specified Qualified Code(s): K21.9 - Gastro-esophageal reflux disease without esophagitis Code(s): K21.9 - Gastro-esophageal reflux disease without esophagitis Status: Acute Assessment and Plan: Continue PPI Additional Plan Q12 metoprolol added to 400 daily amio; continue warfarin for AFib Planning for dc yesterday on po amio with plan for outpatient cardioversion, however cards would prefer inpatient cardioversion most likely as there is concern over continued palpitations and chest discomfort and marked tachycardia Defer to cardiology regarding timeline of cardioversion - expect today. Time Spent With Patient Time with patient: less than 15 minutes Subjective Date/time seen: 01/06/21 07:51 continues to have palpitations Review of Systems Review of Systems: All systems reviewed & are unremarkable except as noted in HPI and below Exam Const: General: no acute distress Neck: Neck: no JVD Resp: Effort & Inspection: normal respiratory effort Auscultation: clear to auscultation bilaterally Cardio: Rate: regular rate Rhythm: regular rhythm GI: Inspection: non-distended Objective Data Vital Signs Vital Signs: Vital Signs - 24 hr 01/05/21 08:00 01/05/21 08:08 01/05/21 10:00 Temperature 97.4 F L Pulse Rate 124 H 134 H 122 H Respiratory Rate 24 H Blood Pressure 146/96 H Pulse Oximetry 92 01/05/21 11:26 01/05/21 12:00 01/05/21 12:11 Temperature 100.2 F H 99.5 F Pulse Rate 72 100 Respiratory Rate 18 Blood Pressure 139/88 Pulse Oximetry 95 01/05/21 12:34 01/05/21 14:00 01/05/21 16:00 Temperature 97.5 F L Pulse Rate 125 H 126 H 113 H Respiratory Rate 22 H Blood Pressure 130/73 Pulse Oximetry 92 01/05/21 17:09 01/05/21 18:00 01/05/21 19:03 Temperature 97.3 F L 96.8 F L Pulse Rate 120 H 106 H 123 H Respiratory Rate 20 22 H Blood Pressure 147/106 H 140/96 H Pulse Oximetry 94 94 01/05/21 20:00 01/05/21 20:20 01/05/21 21:56 Temperature Pulse Rate 138 H 123 H 121 H Respiratory Rate Blood Pressure Pulse Oximetry 01/05/21 23:58 01/06/21 00:00 01/06/21 01:46 Temperature 98.4 F Pulse Rate 128 H 128 H 85 Respiratory Rate 16 Blood Pressure 143/82 H Pulse Oximetry 93 01/06/21 03:35 01/06/21 04:00 01/06/21 06:00 Temperature 97.7 F Pulse Rate 116 H 106 H 118 H Respiratory Rate 20 Blood Pressure 147/65 H Pulse Oximetry 92 Intake/Output Intake/Output: Intake & Output 01/03/21 01/04/21 01/05/21 01/06/21 23:59 23:59 23:59 23:59 Intake Total 9344 487 0001 450 Output Total 2250 2100 2075 1200 Balance -630 -1240 -1055 -750 Meds/Results Medications: Active Medications Generic Name Dose Route Start Last Admin Trade Name Freq PRN Reason Stop Dose Ad
[2021-01-06] MEDS: MAGNESIUM SULF 2 GM/WATER 50ML 2 GM/50 ML BAG IVPB (08:28)
[2021-01-06] MEDS: TOLNAFTATE 1% POWDER 45 GM BTL 1 APPLIC TOPICAL (08:34)
[2021-01-06] MEDS: AMIODARONE HCL 200 MG TABLET 400 MG PO (09:05)
[2021-01-06] MEDS: PANTOPRAZOLE 40 MG TABLET PO (09:05)
[2021-01-06] MEDS: METOPROLOL TARTRATE 12.5 MG TABLET PO (09:05)
--- NOTE | 2021-01-06 09:36 | PM.PNCARD ---
Progress Note: A&P Additional Plan 80-year-old lady with: Recurrent persistent atrial fibrillation now being loaded with oral amiodarone. Because of the challenges regarding achieving rate control I believe we should attempt cardioversion today and hope that the amiodarone she has received will maintain sinus rhythm. We cannot reasonably discharge the patient with poor rate control in hopes of cardioverting her about a month from now. Will arrange for DC cardioversion later this morning. Len Parker MD [facility] Subjective Date/time seen: 01/06/21 09:36 Interval history: Follow-up visit in this 80-year-old lady with: Symptomatic recurrent atrial fibrillation. She had been treated with sotalol in the past with good success but then became resistant to this with significant AF burden. Recently she was transitioned to the combination of flecainide and metoprolol. She entered the hospital with symptomatic bradycardia and was in sinus rhythm alternating with junctional rhythm. These medications were stopped and as expected she is now back in atrial fibrillation heart rate is ranging between 90 and 110. While at bed rest she is essentially asymptomatic. Discussed options with patient in detail in terms of excepting chronic atrial fibrillation or starting amiodarone at this time. Date of service 01/04/2021: Patient is asymptomatic still receiving intravenous amiodarone now for the last couple of days she is well rate controlled but persisting in atrial fib. Long discussion with the patient again about management strategy. I would like to transition her to oral amiodarone 400 mg daily at this time and consider discharge a little later in the day today if she remains well rate controlled. I will then see her in the office in about 1 month and if she is persisting in AFib attempt another cardioversion. Yesterday 5 partner discussed cardioverting her today which I would prefer not to do given the long half-life of amiodarone and the better chance of cardioversion succeed give her a longer oral loading dose. Date of service 01/05/2021: This morning she has not been rate controlled with heart rate consistently 120-145 while laying in bed. She is complaining of dizziness. Denies shortness of breath, chest pain, palpitations. Date of service 01/06/2021: At bedrest patient is essentially asymptomatic becomes however quickly tachycardic up to heart rate of 140s with modest activity. Discussed and recommended attempting cardioversion earlier than we had anticipated because of heart rate control has proven to be challenging to achieve. She understands this and is agreeable. Exam Narrative: Const: General: comfortable and no acute distress Other: Obese elderly lady pleasant, comfortable, cooperative, no distress HENMT: General nose exam: Normal nares present Mouth: Yes moist mucous membranes Eyes: Sclera: sclerae normal Pupils: Equal, round and reactive pupils present Neck: Neck: supple and no JVD Chest: Other: No reproducible chest wall pain to palpation Resp: Effort & Inspection: normal respiratory effort Auscultation: clear to auscultation bilaterally Cardio: Rate: tachycardic Rhythm: regular rhythm and abnormal rhythm irregularly irregular Heart sounds: no murmurs GI: Inspection: normal to inspection Auscultation: normal bowel sounds Skin: General skin exam: normal color Neuro: Cranial nerves: Yes Equal, round and reactive pupils present and Yes Normal hearing present Cognition (Neuro): normal cognition Speech: normal speech Extrem: General: normal to inspection and no edema Psych: Mental Status: mental status grossly normal Objective Data Vital Signs Vital Signs: Vital Signs - 24 hr 01/05/21 10:00 01/05/21 11:26 01/05/21 12:00 Temperature 37.9 C H Pulse Rate 122 H 72 100 Respiratory Rate 18 Blood Pressure 139/88 Pulse Oximetry 95 01/05/21 12:11 01/05/21 12:34 01/05/21 14:00 Temperature 37.5
--- NOTE | 2021-01-06 11:17 | WPDMODSED ---
Moderate Sedation Note-Pt Data Patient Data Diagnosis: persistent atrial fibrillation Present Complaint: fatigue lack of energy tachycardia palpitations Procedure to be performed/Plan: DC cardioversion Allergies Allergy/AdvReac Type Severity Reaction Status Date / Time No Known Allergies Allergy Unknown Verified 12/31/20 09:26 Home Medications Medication Instructions Recorded Confirmed Type omeprazole magnesium 20 mg 20 mg PO DAILY 12/15/19 12/31/20 History tablet,delayed release indapamide 2.5 mg tablet 2.5 mg PO DAILY #90 tablet 04/29/20 12/31/20 Rx potassium chloride 10 mEq 10 meq PO DAILY #90 tablet 09/30/20 12/31/20 Rx tablet,extended release flecainide 100 mg PO DAILY 12/31/20 12/31/20 History metoprolol succinate 100 mg PO Q12H 12/31/20 12/31/20 History warfarin 4 mg PO DAILY 12/31/20 12/31/20 History Current Medications: Active Medications Acetaminophen (Acetaminophen 500 Mg Tablet) 1,000 mg PO Q6H PRN PRN Reason: Mild Pain (1-3) or Fever Last Admin: 01/01/21 16:10 Dose: 1,000 mg Documented by: Amiodarone HCl (Amiodarone Hcl 200 Mg Tablet) 400 mg PO DAILY@0800 [facility] Last Admin: 01/06/21 09:05 Dose: 400 mg Documented by: Hydralazine HCl (Hydralazine Hcl 20 Mg/Ml Vial) 20 mg IV PUSH Q4H PRN PRN Reason: Blood Pressure - High Metoprolol Tartrate (Metoprolol Tartrate Inj 5 Mg/5 Ml Vial) 5 mg IV PUSH Q4H PRN PRN Reason: HR > 120 Metoprolol Tartrate (Metoprolol Tartrate 12.5 Mg Tablet) 12.5 mg PO Q12HR [facility] Last Admin: 01/06/21 09:05 Dose: 12.5 mg Documented by: Miconazole Nitrate (Miconazole 2% Antifungal Ointment 56 Gm) 1 applic TOPICAL Q12HR [facility] Last Admin: 01/06/21 08:34 Dose: 1 applic Documented by: Ondansetron HCl (Ondansetron Inj 4 Mg/2 Ml Vial) 4 mg IV PUSH Q4H PRN PRN Reason: Nausea Last Admin: 01/01/21 03:26 Dose: 4 mg Documented by: Pantoprazole Sodium (Pantoprazole 40 Mg Tablet) 40 mg PO QAM [facility] Last Admin: 01/06/21 09:05 Dose: 40 mg Documented by: Tolnaftate (Tolnaftate 1% Powder 45 Gm Btl) 1 applic TOPICAL Q12HR [facility] Last Admin: 01/06/21 08:34 Dose: 1 applic Documented by: Warfarin Sodium (Warfarin (*Pbkc) 4 Mg Tablet) 4 mg PO DAILY@1700 [facility] Last Admin: 01/05/21 20:20 Dose: 4 mg Documented by: Sedation/Anesthesia: No previous sedation/anesthesia problems (including family history). PMFSH Past Medical History Medical History Atrial fibrillation and flutter Paroxysmal atrial fibrillation Primary hypertension Psoriasis Surgical History Surgical History H/O colonoscopy History of knee surgery [place] teeth removed Family History Family History Father Family history of cardiovascular disease Mother Family history of malignant neoplasm of breast in first degree relative Other Family history of coronary artery disease Social History Social History Social History: The patient lives home alone. She is . She has 2 children who are the power trust and estates attorney for healthcare. The patient used to smoke many years ago. 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 Code status full code Smoking packs per day: 0.5 Smoking cigarettes per day: 10.0 Years smoked: 30 Smoking pack-years: 15.00 Smoking status: Former smoker Tobacco type: cigarettes Second hand tobacco smoke exposure: No Smoking end date: 03/11/99 Alcohol intake: never Alcohol use details: Social Substance use: never Substance use type: does not use Gender identity (if verbalized by the patient): Female Sexual Orientation (if Verbalized by the Patient): Straight or Heterosexual Spiritual care concerns: No Agree to blood products: Yes Mod Sed Physical Exam Physical Exam Pre Procedural Exam: Normal: Neck
--- NOTE | 2021-01-06 11:37 | ECG_ITS ---
Measurements Intervals [place] Rate: 58 P: 105 [place]: 198 QRS: 73 QRSD: 84 T: 65 QT: 419 QTc: 414 Interpretive Statements SINUS BRADYCARDIA LOW QRS VOLTAGE IN PRECORDIAL LEADS CONSIDER HIGH LATERAL INFARCT, AGE INDETERMINATE BASELINE ARTIFACT- I, III, AVL ABNORMAL ECG Electronically Signed On 01-06-2021 13:15:30 CDT by Darrin Valadez D.O.
--- NOTE | 2021-01-06 11:46 | P.PCNCC_ITS ---
Cardiac Cath Procedure Note Date of procedure:: 01/06/21 Performing physician:: Len Parker MD Indication:: Persistence/symptomatic atrial fibrillation Brief clinical history:: This is a 80-year-old patient with a history of paroxysmal atrial fibrillation previously treated with sotalol to which she became resistant and then with flecainide with sure she did not tolerate. She has now been loaded with amiodarone in the hospital and is considered a candidate for electrical cardioversion. He is anticoagulated with warfarin Procedure Procedure performed:: DC cardioversion Sedation/Medication given:: Intravenous propofol in aliquots total dosage of 60 mg Estimated blood loss:: 0 Procedure note:: Patient was brought to the clinical laboratory manager holding area in the postabsorptive state defibrillator patches were placed in the AP position. She was then sedated using boluses of propofol using her up peripheral IV. The patient was then counter shocked with 200 joules in a synchronized fashion re storing normal sinus rhythm. Findings:: As above Conclusion:: Successful uncomplicated DC cardioversion terminating atrial fibrillation and restoring sinus rhythm using 200 joules x1 shock Len Parker MD [facility]
[2021-01-06] MEDS: WARFARIN (*PBKC) 4 MG TABLET PO (16:49)
== END 2021-01-06 18:02 | disposition home or self-care (01) | DRG 309 ==
LOC: ANHED 13:01 → ANHIMU 13:36 → ANHICU 18:09 → ANHIMU 01-03 13:03 → ANHICU 01-09 13:26 → ANHIMU 01-09 13:26
PROVIDERS: Internal Medicine; Nurse Practitioner; Specialist; Admitting Provider Internal Medicine; Emergency Provider General Practice; PCP Family Medicine; Visit Provider Internal Medicine
PROC: 5A2204Z Restoration of Cardiac Rhythm, Single (ICD-10-PCS; principal; 2021-01-06 11:30)
DX: I48.19 Other persistent atrial fibrillation (principal); Z68.41 Body mass index [BMI] 40.0-44.9, adult; N17.9 Acute kidney failure, unspecified; I48.92 Unspecified atrial flutter; Z79.01 Long term (current) use of anticoagulants; R00.1 Bradycardia, unspecified; I44.0 Atrioventricular block, first degree; I10 Essential (primary) hypertension; L40.9 Psoriasis, unspecified; Z87.891 Personal history of nicotine dependence; E66.01 Morbid (severe) obesity due to excess calories; K21.9 Gastro-esophageal reflux disease without esophagitis; R79.1 Abnormal coagulation profile; R93.89 Abnormal findings on diagnostic imaging of other specified body structures; Z20.822 Contact with and (suspected) exposure to COVID-19; R73.03 Prediabetes; G89.29 Other chronic pain; M54.42 Lumbago with sciatica, left side; I48.0 Paroxysmal atrial fibrillation
CPT/HCPCS: 36415; 70450; 71045; 76775; 80048; 80053; 82550; 83735; 83880; 84100; 84439; 84443; 84480; 84481; 84484; 85025; 85027; 85610; 85730; 87086; 87088; 92960; 93005; 93306; 96361; 96365; 96366; 96375; 96376; 97110; 97161; 97165; 97530; 97535; 99285; A9270; C9803; G0378; J0131; J0282; J0461; J1265; J1610; J2405; J2704; J3475; J7030; J7040; U0003; U0005

== ENCOUNTER 2021-03-13 07:56 | Outpatient (CLI) | payer MEDICARE, SELFPAY ==
--- NOTE | 2021-03-23 16:44 | WPDSLEEPSTUD ---
Sleep Study Date of Study: 03/13/21 Ordering Provider: Dolly Guadarrama MD Interpreting Physician: Sangeetha Moralez MD Sleep Study Type: Polysomnogram Height: 1.57 m Weight: 97.976 kg Body Mass Index: 39.4 Neck Circumference (inches): 17 [place]: 6 Reason for Sleep Study Fatigued, loud snoring Sleep History Iqra Jade is an 80-year-old female with a history of longstanding fatigue. She was diagnosed with atrial fibrillation 15 years ago. It has been controlled until 3 or 4 weeks ago when her medications changed and she had an adverse reaction to the new medications. She spent 6 days in the hospital, was placed on amiodarone with an unsuccessful attempt at cardioversion. Her high school coordinator and her primary care agreed that she needed to proceed with evaluation of her sleep in the context of her atrial fib. She has difficulty falling asleep, she wakes up during the night including the hand almond blancher hours and she is excessively sleepy during the day. She does not awaken from sleep feeling short of breath or awaken with heartburn, belching or coughing. She occasionally has difficulty sleeping with a cold. She does not wake up gasping for breath at night. She does not sweat excessively at night. She frequently notices her heart pounding or beating irregularly at night. she frequently falls asleep during the day, frequently falls asleep involuntarily but never falls asleep while driving. She frequently has loss of muscle tone with strong emotion. She does not feel paralyzed on waking or falling asleep. She she occasionally has vivid dreamlike scenes upon awakening or falling asleep. She does not feel afraid to go to sleep. She occasionally has nightmares. She occasionally remembers her dreams. She frequently has racing thoughts. She rarely feels sad or depressed. She occasionally has anxiety. She rarely has muscular tension. She frequently notices parts of her body jerking. She does not have crawling and aching feelings in her legs. She rarely has any kind of leg pain at night. She does not have morning jaw pain. She does not grind her teeth at night. She occasionally is bothered by pain during the day. She rarely is awakened by pain during the night. She rarely wakes up feeling stiff in the morning. She occasionally wakes up with sore achy muscles. She rarely wakes up with pain in neck and spine. She has dizziness, fatigue, tremors, and she takes antacids regularly. Normal bedtime is between 10:00 p.m. and 11:00 p.m. falling asleep within 15 minutes, typically waking 2-3 times at night to urinate, able to fall asleep again in 5-10 minutes. These awakenings occur in the middle of the night. She wakes the morning by 8:00 a.m.. Weekend schedule is the same. She takes naps in the afternoon or evening. She does not feel refreshed after short naps. She is usually drowsy in the morning for 2 hours or longer. Habits: Smoked tobacco 20 years ago. Caffeine 1 cup of coffee and 8 oz Coca Cola daily. No alcohol or recreational drugs. [facility] Past Medical History Medical History (Updated 03/23/21 @ 17:51 by Sangeetha Moralez MD) Atrial fibrillation and flutter GERD (gastroesophageal reflux disease) Paroxysmal atrial fibrillation Primary hypertension Psoriasis Surgical History Surgical History H/O colonoscopy History of knee surgery [place] teeth removed Family History Family History Father Family history of cardiovascular disease Mother Family history of malignant neoplasm of breast in first degree relative Other Family history of coronary artery disease Social History Social History Social History: The patient lives home alone. She is . She has 2 children who are the power certified nurse practitioner for healthcare. The patient used to smoke many years ago. The
[2021-03-23 17:59] VITALS: BMI 39.4
== END 2021-03-14 06:02 | disposition home or self-care (01) ==
LOC: ANHCSM 07:58
PROVIDERS: PCP Family Medicine; Visit Provider Family Medicine
DX: G47.30 Sleep apnea, unspecified (principal); G47.33 Obstructive sleep apnea (adult) (pediatric)
CPT/HCPCS: 95810

== ENCOUNTER 2021-03-30 07:46 | Outpatient (CLI) | payer MEDICARE, SELFPAY ==
--- NOTE | 2021-04-11 22:22 | WPDSLEEPSTUD ---
Sleep Study Date of Study: 03/30/21 <Sayra Golden DO - Last Filed: 04/17/21 15:31> Ordering Provider: Dolly Guadarrama MD <Sayra Golden - Last Filed: 04/17/21 15:31> Interpreting Physician: Sayra Golden DO <Sayra Golden DO - Last Filed: 04/17/21 15:31> Sleep Study Type: CPAP Titration <Sayra Golden DO - Last Filed: 04/17/21 15:31> Height: 1.57 m <Sayra Golden DO - Last Filed: 04/17/21 15:31> Weight: 97.522 kg <Sayra Golden DO - Last Filed: 04/17/21 15:31> Body Mass Index: 39.3 <Sayra Golden DO - Last Filed: 04/17/21 15:31> Neck Circumference (inches): 17 <Sayra Golden DO - Last Filed: 04/17/21 15:31> [place]: 6 <Sayra Golden DO - Last Filed: 04/17/21 15:31> Reason for Sleep Study The patient had a PSG on March 13, 2020 that showed severe obstructive sleep apnea with an apnea-hypopnea index of 81.9 with desaturation to 68%. <Sayra Golden DO - Last Filed: 04/17/21 15:31> Sleep History Iqra Jade is an 80-year-old female with a history of longstanding fatigue. She was diagnosed with atrial fibrillation 15 years ago. It has been controlled until 3 or 4 weeks ago when her medications changed and she had an adverse reaction to the new medications. She spent 6 days in the hospital, was placed on amiodarone with an unsuccessful attempt at cardioversion. Her adult live in caregiver and her primary care agreed that she needed to proceed with evaluation of her sleep in the context of her atrial fib. She has difficulty falling asleep, she wakes up during the night including the computator hours and she is excessively sleepy during the day. She does not awaken from sleep feeling short of breath or awaken with heartburn, belching or coughing. She occasionally has difficulty sleeping with a cold. She does not wake up gasping for breath at night. She does not sweat excessively at night. She frequently notices her heart pounding or beating irregularly at night. she frequently falls asleep during the day, frequently falls asleep involuntarily but never falls asleep while driving. She frequently has loss of muscle tone with strong emotion. She does not feel paralyzed on waking or falling asleep. She she occasionally has vivid dreamlike scenes upon awakening or falling asleep. She does not feel afraid to go to sleep. She occasionally has nightmares. She occasionally remembers her dreams. She frequently has racing thoughts. She rarely feels sad or depressed. She occasionally has anxiety. She rarely has muscular tension. She frequently notices parts of her body jerking. She does not have crawling and aching feelings in her legs. She rarely has any kind of leg pain at night. She does not have morning jaw pain. She does not grind her teeth at night. She occasionally is bothered by pain during the day. She rarely is awakened by pain during the night. She rarely wakes up feeling stiff in the morning. She occasionally wakes up with sore achy muscles. She rarely wakes up with pain in neck and spine. She has dizziness, fatigue, tremors, and she takes antacids regularly. Normal bedtime is between 10:00 p.m. and 11:00 p.m. falling asleep within 15 minutes, typically waking 2-3 times at night to urinate, able to fall asleep again in 5-10 minutes. These awakenings occur in the middle of the night. She wakes the morning by 8:00 a.m.. Weekend schedule is the same. She takes naps in the afternoon or evening. She does not feel refreshed after short naps. She is usually drowsy in the morning for 2 hours or longer. Habits: Smoked tobacco 20 years ago. Caffeine 1 cup of coffee and 8 oz Coca Cola daily. No alcohol or recreational drugs. <Sayra Golden, - Last Filed: 04/17/21 15:31> [facility] Past Medical History Medical History: Medical History (Reviewed 04/17/21 @ 15:14 by Sayra Ramos
[2021-04-17 15:16] VITALS: BMI 39.3
== END 2021-03-31 06:42 | disposition home or self-care (01) ==
LOC: ANHCSM 07:48
PROVIDERS: PCP Family Medicine; Visit Provider Family Medicine
DX: G47.33 Obstructive sleep apnea (adult) (pediatric) (principal)
CPT/HCPCS: 95811

== ENCOUNTER 2021-08-16 07:24 | Outpatient (CLI) | payer MEDICARE, SELFPAY ==
--- NOTE | 2021-09-05 19:56 | WPDSLEEPSTUD ---
Sleep Study Date of Study: 08/16/21 Ordering Provider: Sangeetha Moralez MD Interpreting Physician: Sayra Golden DO Sleep Study Type: BiPAP Titration Height: 1.57 m Weight: 91.172 kg Body Mass Index: 36.7 Neck Circumference (inches): 15.5 [place]: 10 Reason for Sleep Study The patient had a PSG on March 13, 2020 that showed severe obstructive sleep apnea with an apnea-hypopnea index of 81.9 with desaturation to 68%.?She had a PAP Titration on 03/30/2021 where she was started on CPAP 5 cm H2O and titrated to BPAP 22/18 cm H2O. No optimal pressure was found. Sleep History Iqra Jade is an 80-year-old female with a history of longstanding fatigue.? She was diagnosed with atrial fibrillation 15 years ago.? It has been controlled until 3 or 4 weeks ago when her medications changed and she had an adverse reaction to the new medications.? She spent 6 days in the hospital, was placed on amiodarone with an unsuccessful attempt at cardioversion.? Her dough mixing machine operator and her primary care agreed that she needed to proceed with evaluation of her sleep in the context of her atrial fib.? She has difficulty falling asleep, she wakes up during the night including the advance seal delivery system maintainer hours and she is excessively sleepy during the day.? She does not awaken from sleep feeling short of breath or awaken with heartburn, belching or coughing.? She occasionally? has difficulty sleeping with a cold.? She does not wake up gasping for breath at night. She does not sweat excessively at night.? She frequently notices her heart pounding or beating irregularly at night.? she frequently falls asleep during the day, frequently falls asleep involuntarily but never falls asleep while driving.? She frequently has loss of muscle tone with strong emotion.? She does not feel paralyzed on waking or falling asleep.? She she occasionally has vivid dreamlike scenes upon awakening or falling asleep.? She does not feel afraid to go to sleep.? She occasionally has nightmares.? She occasionally remembers her dreams.? She frequently has racing thoughts.? She rarely feels sad or depressed.? She occasionally has anxiety.? She rarely has muscular tension.? She frequently notices parts of her body jerking.? She does not have crawling and aching feelings in her legs.? She rarely has any kind of leg pain at night.? She does not have morning jaw pain.? She does not grind her teeth at night.? She occasionally is bothered by pain during the day.? She rarely is awakened by pain during the night.? She rarely wakes up feeling stiff in the morning.? She occasionally wakes up with sore achy muscles.? She rarely wakes up with pain in neck and spine.? She has dizziness, fatigue, tremors, and she takes antacids regularly. Normal bedtime is between 10:00 p.m. and 11:00 p.m. falling asleep within 15 minutes, typically waking 2-3 times at night to urinate, able to fall asleep again in 5-10 minutes.? These awakenings occur in the middle of the night.? She wakes the morning by 8:00 a.m..? Weekend schedule is the same.? She takes naps in the afternoon or evening.? She does not feel refreshed after short naps.? She is usually drowsy in the morning for 2 hours or longer. Habits: ? Smoked tobacco 20 years ago.? Caffeine 1 cup of coffee and 8 oz Coca Cola daily.? No alcohol or recreational drugs. [facility] Past Medical History Medical History Atrial fibrillation and flutter GERD (gastroesophageal reflux disease) Hypomagnesemia Paroxysmal atrial fibrillation Primary hypertension Psoriasis Surgical History Surgical History H/O colonoscopy History of knee surgery [place] teeth removed Family History Family History Father Family history of cardiovascular disease Mother Family history of malignant neoplasm of breast in first degree relative Other
[2021-09-05 19:57] VITALS: BMI 36.7
--- NOTE | 2022-01-02 12:50 | SLEEP ---
Stacey is sending pt a ffm option she is mouth breathing
== END 2021-08-17 06:08 | disposition home or self-care (01) ==
LOC: ANHCSM 07:24
PROVIDERS: PCP Family Medicine; Visit Provider Internal Medicine Critical Care Medicine
DX: G47.33 Obstructive sleep apnea (adult) (pediatric) (principal); G47.61 Periodic limb movement disorder
CPT/HCPCS: 95811

== ENCOUNTER → 2022-01-17 15:28 | Outpatient (CLI) | payer MEDICARE, SELFPAY ==
--- NOTE | ~2022-01-17 | XR_ITS ---
XR chest 2V DATE: 01/17/2022 16:08 INDICATION: Shortness of breath. Airspace opacities of the lung bases and right midlung zone reported on 12/31/2020 portable AP chest TECHNIQUE: 2 views COMPARISON: 12/31/2020 portable AP chest FINDINGS: There is resolution of prominence of the minor fissure and Tone B-lines particularly in t he right lung since 12/31/2020. There is minimal infiltrate or atelectasis at the lung bases. No pulmonary vascular congestion or pleural effusion or pneumothorax. Heart size is within normal range. Is aortic calcification and unfolding. Diffuse osteopenia. IMPRESSION: Resolution of subpleural and interstitial pulmonary edema and pulmonary vascular congesti on and improvement of bilateral infiltrates since 12/31/2020 Minimal residual infiltrate or atelectasis is suggested at the lung bases Reviewed, dictated and finalized at location A. N OUTFITTER IMPRESSION: Resolution of subpleural and interstitial pulmonary edema and pulmo nary vascular congestion and improvement of bilateral infiltrates since 021 Minimal residual infiltrate or atelectasis is suggested at the lung bases
== END ==
PROVIDERS: PCP Internal Medicine Critical Care Medicine; Visit Provider Family Medicine
DX: R93.89 Abnormal findings on diagnostic imaging of other specified body structures (principal); Z79.899 Other long term (current) drug therapy; R91.8 Other nonspecific abnormal finding of lung field
CPT/HCPCS: 71046

== ENCOUNTER 2022-05-21 13:56 | Observation (INO) | payer MEDICARE, SELFPAY ==
[2022-05-21] VITALS (47 sets, daily range): BP systolic 94–167; BP diastolic 55–105; PULSE 101–137; RESP 13–27; TEMP 36.5–36.9; O2SAT 90–100
--- NOTE | ~2022-05-21 | CT_ITS ---
CT ANGIOGRAM NECK AND HEAD History: Intracranial hemorrhage. Technique: Serial spiral axial images through the head and neck were obtained during arterial phase I V injection of 100 cc of Omnipaque 350. 3-D postprocessing and MIP images were then reconstructed on the remote workstation. Dose reduction technique was used on this scan by utilizing automated exposur e control and iterative reconstruction technique. The dose-length product (DLP) was 1082.35 mGy-cm. CTA neck findings: Bilateral vertebral arteries are patent. Bilateral common carotid, internal carot id, and external carotid arteries are patent. No large vessel occlusion. No aneurysm. The proximal ri ght internal carotid artery demonstrates 0% stenosis relative to the normal distal artery lumen diame ter. The proximal left internal carotid artery demonstrates 0% stenosis relative to the normal distal artery lumen diameter. CTA head findings: Distal vertebral arteries, basilar artery, and posterior cerebral arteries are pat ent. Distal internal carotid arteries, middle cerebral arteries, and anterior cerebral arteries are p atent. No large vessel occlusion or aneurysm. There is atherosclerotic change in the cavernous portio ns of the distal internal carotid arteries bilaterally. Impression: No significant vascular abnormality seen. Reviewed, dictated and finalized at location . Impression: No significant vascular abnormality seen.
--- NOTE | ~2022-05-21 | CT_ITS ---
EXAMINATION: CT brain wo con DATE: 05/21/2022 20:53 INDICATION: fall . TECHNIQUE: Computed tomography (CT) of the head was performed without intravenous contrast. The mA wa s adjusted according to patient size. Iterative reconstruction technique was employed. The dose-lengt h product was 681.00 mGy-cm. COMPARISON: 12/31/2020. FINDINGS: Small volume sulcal hyperdensities along the posterior parietal and occipital lobes, slightly greater on the right. No hydrocephalus, mass, or herniation. No acute ischemic infarct. Unremarkable dural venous sinus attenuation. No acute osseous abnormality. Possible small left frontal scalp contusion. The aerated spaces are clear. Moderate atrophy and chronic white matter change. Atherosclerotic intracranial calcification. IMPRESSION: Small volume subarachnoid along the posterior convexity, slightly greater on the right. Results reported telephonically to Gregorio Vaz RN by Dr. Helton at 925 PM on 05/21/2022. Reviewed, dictated and finalized at location K. IMPRESSION: Small volume subarachnoid along the posterior convexity, slightly greater on th e right. Results reported telephonically to Gregorio Vaz RN by Dr. Helton at 925 PM on 05/21/2022.
--- NOTE | 2022-05-21 14:02 | ECG_ITS ---
Measurements Intervals [place] Rate: 127 P: [place]: 0 QRS: 147 QRSD: 105 T: -33 QT: 284 QTc: 414 Interpretive Statements ATRIAL FIBRILLATION WITH RAPID VENTRICULAR RESPONSE CONSIDER LIMB LEAD REVERSAL ST-T WAVE ABNORMALITY IN INFERIOR LEADS- CONSIDER ISCHEMIA ABNORMAL ECG COMPARED TO ECG 01/06/2021 11:39:57 ATRIAL FIBRILLATION NOW PRESENT ST-T WAVE ABNORMALITY NOW PRESENT Electronically Signed On 05-21-2022 14:08:14 CDT by Darrin Valadez D.O.
[2022-05-21] MEDS: dilTIAZem 100 MG/100 ML 100 MG/100 ML BAG IV CONT (14:38)
[2022-05-21] MEDS: dilTIAZem HCl INJ 25 MG/5 ML VIAL 10 MG IV PUSH (14:38)
[2022-05-21] MEDS: SODIUM CHLORIDE 0.9% IV 1,000 ML 500 ML IV CONT (14:39)
[2022-05-21 15:03] LABS: Basophils Percent Auto 0.1 % (0.2-1.2); Eosinophils Percent Auto 0.1 % (0-4.4); Hematocrit 43.6 % (37.0-47.0); Hemoglobin 14.3 g/dL (12.0-15.0); Immature Granulocyte Absolute 0.05 K/mm3 (0.00-0.031); Immature Granulocyte Percent A 0.4 % (0-0.5); Lymphocytes Absolute Auto 0.72 K/mm3 (0.9-3.2); Lymphocytes Percent Auto 6.4 % (18.3-44.2); Mean Corpuscular HGB Conc 32.8 g/dl (32-36); Mean Corpuscular Hemoglobin 28.3 pg (26-34); Mean Corpuscular Volume 86.3 fl (80-100); Mean Platelet Volume 10.4 fl (7.4-10.4); Neutrophils Absolute Auto 9.4 K/mm3 (1.3-6.7); Platelet Count Result 262 k/mm3 (150-375); Red Blood Count 5.05 M/mm3 (4.2-5.4); Red Cell Distribution Width 17.9 % (11.5-14.5); White Blood Count 11.2 K/mm3 (4.5-10.0)
[2022-05-21 15:13] LABS: Lactic Acid Reflex 1.2 mmol/L (0.7-2.0)
[2022-05-21 15:14] LABS: Alanine Aminotransferase 23 U/L (6-35); Albumin Level 4.3 g/dL (3.5-5.1); Alkaline Phosphatase 124 U/L (38-126); Anion Gap 10 mmol/L (8-16); Aspartate Amino Transferase 35 U/L (14-36); Bilirubin,Total 1.6 mg/dL (0.2-1.3); Blood Urea Nitrogen 40 mg/dL (7-17); Calcium 9.6 mg/dL (8.4-10.2); Carbon Dioxide 23 mmol/L (22-30); Chloride 103 mmol/L (98-107); Estimated CRCL calculation 41 ml/min; Estimated Glomerular Filt Rate 53; Glucose 116 mg/dL (65-110); Potassium 3.3 mmol/L (3.4-5.0); Sodium 136 mmol/L (137-145)
[2022-05-21 15:16] LABS: Partial Thromboplastin Time 101.9 SECONDS (22.3-36.8)
[2022-05-21 15:39] LABS: Influenza A QL RT-PCR Negative (Negative); Influenza B QL RT-PCR Negative (Negative); RSV RNA, RT-PCR Negative (Negative); SARS-CoV-2 RNA PCR Negative
--- NOTE | 2022-05-21 15:40 | ED.GENADULT ---
HPI - General Adult General Chief complaint: Weakness Stated complaint: weakness History of Present Illness HPI narrative: 81-year-old female with history of atrial fibrillation with RVR presented the emergency department for evaluation of A-fib with RVR. Patient states she has had increased weakness over the past few days. Patient does report multiple falls but denies striking head denies loss conscious. Patient states that she has had nausea without vomiting and decreased p.o. intake. Patient states that she has not been taking medications for blood pressure but has been taking her Coumadin and her amiodarone. Related Data Home Medications Medication Instructions Recorded Confirmed omeprazole magnesium 20 mg 20 mg PO DAILY 12/15/19 04/23/22 tablet,delayed release (Prilosec OTC) amiodarone 200 mg tablet (Pacerone) 200 mg PO DAILY@0800 08/08/21 04/23/22 Allergies Allergy/AdvReac Type Severity Reaction Status Date / Time No Known Allergies Allergy Unknown Verified 05/21/22 14:01 Review of Systems Review of Systems: All systems reviewed & are unremarkable except as noted in HPI and below PMFSH Past Medical History Medical History (Updated 05/21/22 @ 19:39 by Rubén Boykin MD) Abnormal chest xray ASHA (acute kidney injury) Bradycardia Dizziness Fatigue GERD (gastroesophageal reflux disease) On amiodarone therapy Primary hypertension Psoriasis Shingles Supratherapeutic INR Surgical History Surgical History H/O colonoscopy History of knee surgery [place] teeth removed Family History Family History Father Family history of cardiovascular disease Mother Family history of malignant neoplasm of breast in first degree relative Other Family history of coronary artery disease Social History Social History (Updated 05/21/22 @ 18:06 by Viki Man NP) Social History: The patient lives home alone. She is . She has 2 children who are the power erisa attorney for healthcare. The patient used to smoke many years ago. 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 Smoking packs per day: 0.5 Smoking cigarettes per day: 10.0 Years smoked: 30 Smoking pack-years: 15.00 Smoking status: Former smoker (15 pack years, quit 20 years ago) Tobacco type: cigarettes Second hand tobacco smoke exposure: No Smoking end date: 03/11/99 Alcohol intake: never Alcohol use details: Social Substance use: never Substance use type: does not use Lack of Transportation: No Lack of Food: Never True Current Housing: I Have Housing Concerned About Future Housing: No Difficulty Paying Gas/Electric Bills: No Difficulty Paying for Meds: No Currently Unemployed: No Education: Bachelor's Degree Difficulty w/ Childcare or Family Care: No Living arrangements: alone Occupation/Education: retired Gender identity (if verbalized by the patient): Female Sexual Orientation (if Verbalized by the Patient): Straight or Heterosexual Spiritual care concerns: No Agree to blood products: Yes Exam Narrative: APPEARANCE: Well appearing, no pain, no distress, well-nourished. HEAD: normocephalic, atraumatic. EYES: PERRLA/EOMI, conjunctivae clear. NOSE: Normal no drainage EARS:TMS clear with good light reflex. THROAT: Pharynx clear, no exudate. NECK: Supple. No adenopathy, no masses. RESPIRATORY: Airway patent, respirations nonlabored. Clear to auscultation bilaterally, no rales, rhonchi, wheezing. CARDIOVASCULAR: Tachycardia ABDOMINAL: Soft, nontender, nondistended, normal bowel sounds MUSCULOSKELETAL: Moves all extremities. Strength/ROM intact, No edema, No calf tenderness. NEURO: Alert. Cranial nerves II through XII intact. SKIN: Warm, dry. Normal Color Course Course Emergency Course: 81 old female
[2022-05-21 16:12] LABS: Prothrombin Time 65.4 Seconds (11.1-14.7)
[2022-05-21 16:21] LABS: INR 8.1
--- NOTE | 2022-05-21 18:02 | PM.IMHP ---
H&P: HPI History of Present Illness Date/Time: 05/21/22 18:02 Chief Complaint: Weakness Narrative: This is an 81-year-old female patient who has a history of atrial fibrillation. The patient is on Coumadin daily the patient has bruises all of her legs and stated that she has been falling. She denies hitting her head. Or losing consciousness. She has had nausea without vomiting and decreased oral intake. The patient stated she has not been taking any medication except for her blood pressure medication and her Coumadin. She stated she was taking her amiodarone as well for her AFib. The patient was found to be in AFib with RVR. The patient was given Cardizem, Zofran and IV fluids. She was started on a Cardizem drip. Chest x-ray was read as the followingResolution of subpleural and interstitial pulmonary edema and pulmonary vascular congestion and improvement of bilateral infiltrates since 12/31/2020 Minimal residual infiltrate or atelectasis is suggested at the lung bases. The patient is very hard of hearing but is awake and talking. According to the family she is at her baseline. The patient just complains of weakness. She has no focal weakness. Her INR is 8.1. EKG was read as AFib with rapid ventricular response. The patient is being admitted to observation status on the date of service of 05/21/2022. Review of Systems Review of Systems: All systems reviewed & are unremarkable except as noted in HPI and below Constitutional: Constitutional: Reports as per HPI and Reports no additional constitutional complaints Eyes: Eyes: Reports as per HPI and Reports no additional eye complaints ENT: Reports system reviewed and no additional complaints, except as documented and Reports Normal hearing present Cardiovascular: Cardiovascular: Reports no additional cardiovascular complaints Respiratory: Respiratory: Reports no additional respiratory complaints and Reports no additional respiratory complaints Gastrointestinal: Gastrointestinal: Reports as per HPI and Reports no additional gastrointestinal complaints Musculoskeletal: Musculoskeletal: Reports no additional musculoskeletal complaints Integumentary/Breasts: Skin/Breast: Reports system reviewed and no additional complaints, except as docu and Reports as per HPI Neurologic: Reports system reviewed and no additional complaints, except as documented, Reports as per HPI and Reports Normal hearing present Psychiatric: Psychiatric: Reports no additional psychiatric complaints and Reports as per HPI Endocrine: Endocrine: Reports no additional endocrine complaints Hematologic/Lymphatic: Hematologic/Lymphatic: Reports no additional hematologic/lymphatic complaints Allergic/Immunologic: Allergic/Immunologic: Reports no additional allergic/immunologic complaints [facility] Past Medical History Medical History (Updated 05/21/22 @ 22:12 by Viki Man NP) Abnormal chest xray ASHA (acute kidney injury) Bradycardia Dizziness Fatigue GERD (gastroesophageal reflux disease) On amiodarone therapy Primary hypertension Psoriasis Shingles Supratherapeutic INR Surgical History Surgical History (Updated 05/21/22 @ 22:06 by Viki Man NP) H/O colonoscopy H/O rectal polypectomy History of knee surgery [place] teeth removed Family History Family History Father Family history of cardiovascular disease Mother Family history of malignant neoplasm of breast in first degree relative Other Family history of coronary artery disease Social History Social History (Updated 05/21/22 @ 22:08 by Viki Man NP) Social History: The patient lives home alone. She is . She has 2 children who are the power attorney law clerk for healthcare. The patient used to smoke many years ago. 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 Code status full code Sm
--- NOTE | 2022-05-21 19:21 | ADMGEN ---
This patient, Iqra Jade, was admitted to IMU Room 200-01. Patient/family oriented to hospital policies and general routines including ID bracelet, bed and alarms, visiting hours, pain management, procedures, bathroom and other care routines, personal items, smoking policy, room service/diet, and visiting hours. Information on how to activate the Rapid Response Team has been discussed. Patient/Family are encouraged to report perceived risks to care and to ask questions if they do not understand what they are told or what they should do.
[2022-05-21] MEDS: SODIUM CHLORIDE 0.9% IV 1,000 ML 70 ML IV CONT (21:27)
[2022-05-21] MEDS: PHYTONADIONE 2.5 MG TAB PO (21:28)
[2022-05-21] MEDS: PHYTONADIONE INJ 10 MG/ML AMP SUB-Q (22:49)
[2022-05-21] MEDS: POTASSIUM CHLORIDE 20 MEQ PACKET (FOR LIQUID) PO (22:49)
[2022-05-21] MEDS: PANTOPRAZOLE SODIUM IV 40 MG VIAL IV PUSH (22:50)
[2022-05-21] MEDS: SODIUM CHLORIDE 0.9% IV 250 ML 30 ML IV CONT (22:50)
[2022-05-22] VITALS: PULSE 103; RESP 20; O2SAT 99
[2022-05-22 00:01] LABS: Appearance Urine Clear (Clear); Bacteria Urine None Seen /hpf; Bilirubin Urine 2+ (Negative); Blood Urine Negative (Negative); Color Urine Dark Yellow (Yellow); Glucose Urine UA Negative (Negative); Ketones Urine 1+ mg/dL (Negative); Leukocyte Esterase Ur Trace LEU/UL (Negative); Nitrate Urine Negative (Negative); Protein Urine 2+ mg/dL (Negative); RBC Urine 0-2 /hpf (0-2); Squamous Epithelial Cell Urine None seen /hpf (Few); WBC Urine 0-5 /hpf; pH Urine 5.5 (5.0-9.0)
[2022-05-22 00:02] VITALS: BP 147/86; PULSE 101; RESP 20; TEMP 36.3; O2SAT 99
[2022-05-22 00:06] LABS: Specific Grav Ur 1.041 (1.001-1.035)
[2022-05-22 00:07] LABS: Add Urine Microscopic? YES
[2022-05-22 00:18] VITALS: BP 155/83; PULSE 107; RESP 20; TEMP 36.6; O2SAT 100
[2022-05-22 01:08] VITALS: BP 145/83; PULSE 103; RESP 20; TEMP 36.4; O2SAT 100
--- NOTE | 2022-05-22 01:15 | PCRCNOTE ---
Pt does not want to use our cpap/bipap unit
== END 2022-05-22 01:29 | disposition short-term general hospital (02) ==
LOC: ANHED 14:16 → ANHIMU 18:47
PROVIDERS: Admitting Provider Chiropractor; Emergency Provider Emergency Medicine; PCP Family Medicine; Visit Provider Internal Medicine
DX: I60.9 Nontraumatic subarachnoid hemorrhage, unspecified (principal); I48.91 Unspecified atrial fibrillation; R79.1 Abnormal coagulation profile; G47.33 Obstructive sleep apnea (adult) (pediatric); Z99.89 Dependence on other enabling machines and devices; R29.6 Repeated falls; K21.9 Gastro-esophageal reflux disease without esophagitis; R53.1 Weakness; N17.9 Acute kidney failure, unspecified; I10 Essential (primary) hypertension; Z20.822 Contact with and (suspected) exposure to COVID-19; R94.31 Abnormal electrocardiogram [ECG] [EKG]; Z87.891 Personal history of nicotine dependence; Z79.01 Long term (current) use of anticoagulants; Z79.899 Other long term (current) drug therapy
CPT/HCPCS: 36415; 36430; 70450; 70496; 70498; 80053; 81001; 83605; 85025; 85610; 85730; 86900; 86901; 87040; 87637; 93005; 96365; 96366; 96367; 96372; 96375; 99285; A9270; C9113; G0378; J1953; J3430; J7030; J7050; P9017; Q9967

== ENCOUNTER 2023-01-17 07:53 | Outpatient (CLI) | payer MEDICARE, SELFPAY | END 2023-01-17 07:54 | disposition home or self-care (01) | LOC: ANHAUDIO 07:53 | PROVIDERS: PCP Family Medicine; Visit Provider Physician Assistant Medical | DX: H90.3 Sensorineural hearing loss, bilateral (principal) | CPT/HCPCS: 92557; 92567 ==

== ENCOUNTER 2023-04-09 13:00 | Outpatient (RCR) | payer MEDICARE, SELFPAY | END 2023-04-09 23:59 | disposition home or self-care (01) | LOC: ANHAUDIO 13:00 | PROVIDERS: PCP Family Medicine | DX: Z46.1 Encounter for fitting and adjustment of hearing aid (principal) | CPT/HCPCS: 99199; V5261 ==